=== PATIENT | female | born 1950 | race Caucasian/White ===

== ENCOUNTER 2016-09-12 18:13 | Inpatient (IN) | payer MEDICARE, MEDICAID ==
[~2016-09-12] VITALS: Ht 162.8 cm; Wt 84.4 kg
[2016-09-12] MEDS ORDERED: Bacitracin Oint UD TOPIC ONE (18:15)
[2016-09-12] MEDS ORDERED: Lidocaine 1% 10mg/ml/EPI 0.01mg/ml 50ml INJ ONE (18:15)
[2016-09-12] MEDS ORDERED: fentaNYL 100 mcg/2 mL IV ONE ×4 (18:15→23:45)
[2016-09-12 19:08] LABS: BASOPHILS % (AUTO) 0.8 % (0.0-2.0); EOSINOPHILS % (AUTO) 1.3 % (0.0-3.0); LYMPHOCYTES % (AUTO) 23.7 % (20.0-45.0); MEAN CORPUSCULAR HEMOGLOBIN 27.6 PG (27.0-31.0); MEAN CORPUSCULAR HGB CONC 32.5 G/DL (32.0-36.0); MEAN CORPUSCULAR VOLUME 85 FL (80-99); MEAN PLATELET VOLUME 6.1 FL (6.5-10.1); NEUTROPHILS % (AUTO) 67.3 % (45.0-75.0); PLATELET COUNT 340 K/UL (150-450); RED BLOOD COUNT 4.08 M/UL (4.20-5.40); WHITE BLOOD COUNT 6.3 K/UL (4.8-10.8)
[2016-09-12 19:25] LABS: TROPONIN I < 0.30 ng/mL (<=0.30)
[2016-09-12 19:28] LABS: ALANINE AMINOTRANSFERASE 17 U/L (3-33); ALBUMIN/GLOBULIN RATIO 1.5 (1.0-2.7); ANION GAP 21 (5-15); ASPARTATE AMINO TRANSFERASE 24 U/L (5-40); CALCIUM 9.1 mg/dL (8.6-10.2); CARBON DIOXIDE 24 mEQ/L (20-30); CHLORIDE 92 mEQ/L (98-107); CREATININE 1.2 mg/dL (0.5-0.9); HEMOLYSIS 5; POTASSIUM 3.8 mEQ/L (3.4-4.9); SODIUM 137 mEQ/L (135-145); TOTAL PROTEIN 7.2 g/dL (6.6-8.7)
[2016-09-12] MEDS ORDERED: Lidocaine 2% 20mg/ml/Epi 0.005mg/ml 20ml vial ONE (20:24)
--- NOTE | 2016-09-12 21:32 | Emergency Room Report ---
History of Present Illness General Chief Complaint: Syncope Source: Patient Present Illness HPI Patient had a fall. She is uncertain how this happened. She denies syncope, but can't explain fall. Hit her face, knees and L arm. Pain in her knees is 10 /10, aching, not radiating. Slight less R elbow, radiating to forearm and up towards shoulder. Constant. No neck pain. + cut R forehead. Some bleeding = minimal. Uncertain last tetanus. She has had collapse in the past. Walks with a cane. No chest pain, palpitations, SOB, NVD, dizziness, back pain, dysuria/hematuria, abdominal pain. H/O diabetes and hypertension. Colostomy. 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 Review of Systems All Other Systems: negative except mentioned in HPI Physical Exam Vital Signs Date Time Temp Pulse Resp B/P Pulse Ox O2 Delivery O2 Flow Rate FiO2 09/12/16 18:14 97.0 82 18 117/50 98 Room Air Sp02 EP Interpretation: reviewed, normal General Appearance: well appearing, no apparent distress, GCS 15 Head: other - laceration r muslim/forehead Eyes: bilateral eye EOMI, bilateral eye PERRL, bilateral eye normal inspection ENT: moist mucus membranes Neck: supple Respiratory: lungs clear, normal breath sounds Cardiovascular #1: regular rate, rhythm Cardiovascular #2: 2+ radial (R) Gastrointestinal: normal inspection, normal bowel sounds, non tender, no mass, non-distended, other - colostomy Musculoskeletal: back normal, gait/station normal, normal range of motion Neurologic: alert, oriented x3, health sanitarian III-XII nml as tested, motor strength/tone normal, DTRs symmetric, sensory intact, cerebellar normal, normal gait, speech normal Psychiatric: mood/affect normal Skin: normal inspection, warm/dry, other - 2.5 cm laceration R forehead Procedures Laceration/Wound Repair Laceration/Wound Repair : Wound Location: face Wound Length (cm): 3 Wound Explored: clean Betadine Prep?: Yes Anesthesia: Lidocaine w/ Epi Wound Debrided: minimal Wound Repaired With: sutures Suture Size/Type: 6:0, proline Layer Closure?: Yes Deep Layer Suture Size/Type: 6:0 Sterile Dressing Applied?: Yes Splint Applied?: No Sling Applied?: No Patient Tolerated: Well Complications: None Medical Decision Making Diagnostic Impression: Primary Impression: Syncope Qualified Codes: R55 - Syncope and collapse Additional Impressions: Facial laceration Qualified Codes: S01.81XA - Laceration without foreign body of other part of head, initial encounter Knee contusion Qualified Codes: S80.00XA - Contusion of unspecified knee, initial encounter Contusion of right elbow Qualified Codes: S50.01XA - Contusion of right elbow, initial encounter Diabetes Qualified Codes: E11.9 - Type 2 diabetes mellitus without complications ER Course Patient with fall with possible syncope. Ddx: AMI, arrhythmia, hypotension, vasovagal amongst others. Patient with head and extremity trauma, fxs need to be excluded as well as treatment with analgesia. Syncope needs to be evaluated with CT, labs, CXR and EKG. Patient improved with analgesia and hydration. sutured Aces applied by tech. Position good with improvement and neurovasc normal as checked by me. Admit telemetry, Dr. Dewey at request of Dr. Dutton. Laboratory Tests Test 09/12/16 18:42 09/13/16 00:10 White Blood Count 6.3 K/UL (4.8-10.8) Red Blood Count 4.08 M/UL (4.20-5.40) L Hemoglobin 11.2 G/DL (12.0-16.0) L Hematocrit 34.6 % (37.0-47.0) L Mean Corpuscular Volume 85 FL (80-99) Mean Corpuscular Hemoglobin 27.6 PG (27.0-31.0) Mean Corpuscular Hemoglobin Concent 32.5 G/DL (32.0-36.0) Red Cell Distribution Width 14.0 % (11.6-14.8) Platelet Count 340 K/UL (150-450) Mean Platelet Volume 6.1 FL (6.5-10.1) L Neutrophils (%) (Auto) 67.3 % (45.0-75.0) Lymphocytes (%) (Auto) 23.7 % (20.0-45.0) Monocytes (%) (Auto) 7.0 % (1.0-10.0) Eosinophils (%) (Auto) 1.3 % (0.0-3.0) Basophils (%) (Auto) 0.8 % (0.0-2.0) Prothrombin Time 10.0 SEC (9.30-11.50) Prothrombin Time INR 1.0 (0.9-1.1) PTT 25 SEC (23-33) Sodium Level 137 mEQ/L (135-145) Potassium Level 3.8 mEQ/L (3.4-4.9) Chloride Level 92 mEQ/L (98-107) L Carbon Dioxide Level 24 mEQ/L (20-30) Anion Gap 21 (5-15) H Blood Urea Nitrogen 20 mg/dL (7-23) Creatinine 1.2 mg/dL (0.5-0.9) H Estimate Glomerular Filtration Rate 45.0 mL/min (>60) Glucose Level 264 mg/dL (74-106) H Calcium Level 9.1 mg/dL (8.6-10.2) Total Bilirubin 0.4 mg/dL (0.0-1.2) Aspartate Amino Transferase (AST) 24 U/L (5-40) Alanine Aminotransferase (ALT) 17 U/L (3-33) Alkaline Phosphatase 108 U/L (35-104) H Total Creatine Kinase 99 U/L (26-140) Troponin I < 0.30 ng/mL (<=0.30) Pro-B-Type Natriuretic Peptide 93 pg/mL (0-125) Total Protein 7.2 g/dL (6.6-8.7) Albumin 4.4 g/dL (3.5-5.2) Globulin 2.8 g/dL Albumin/Globulin Ratio 1.5 (1.0-2.7) Urine Color Pale yellow Urine Appearance Clear Urine pH 5 (4.5-8.0) Urine Specific [place] 1.010 (1.005-1.035) Urine Protein Negative (NEGATIVE) Urine Glucose (UA) Negative (NEGATIVE) Urine Ketones Negative (NEGATIVE) Urine Occult Blood Negative (NEGATIVE) Urine Nitrite Negative (NEGATIVE) Urine Bilirubin Negative (NEGATIVE) Urine Urobilinogen Normal MG/DL (0.0-1.0) Urine Leukocyte Esterase 2+ (NEGATIVE) H Urine RBC 0-2 /HPF (0 - 2) Urine WBC 10-15 /HPF (0 - 2) H Urine Squamous Epithelial Cells Moderate /LPF (NONE/OCC) H Urine Bacteria Few /HPF (NONE) EKG Diagnostic Results Rate: normal Rhythm: NSR ST Segments: no acute changes Rhythm Strip Diag. Results EP Interpretation: yes Rhythm: NSR, no PVC's, no ectopy Chest X-Ray Diagnostic Results EP Interpretation: Yes Findings: no consolidation, no effusion, no pneumothorax, no acute cardiopulmonary disease Number of Views: 1 Other X-Ray Diagnostic Results Other X-Ray Diagnostic Results #1: X-Ray Ordered: L knee EP Interpretation: Yes Findings: no fractures, no dislocation, other - STS Number of Views: 3 Other X-Ray Diagnostic Results #2: X-Ray Ordered: R knee EP Interpretation: Yes Findings: no fractures, no dislocation, other Number of Views: 3 Other X-Ray Diagnostic Results #3: X-Ray Ordered: R elbow EP Interpretation: Yes Findings: no fractures, no dislocation, no soft tissue swelling Number of Views: 3 CT/MRI/US Diagnostic Results CT/MRI/US Diagnostic Results : Imaging Test Ordered: head Impression atrophy, no fx, nl soft tissues Last Vital Signs Date Time Temp Pulse Resp B/P Pulse Ox O2 Delivery O2 Flow Rate FiO2 09/12/16 18:14 97.0 82 18 117/50 98 Room Air Status: improved Disposition: ADMITTED INPATIENT Condition: Serious Referrals: Marianne Dutton MD (PCP) Joon Seaman M.D. Sep 12, 2016 21:32
[2016-09-12] MEDS ORDERED: Mylanta II UD 30ml ORAL PRN (22:00)
[2016-09-12] MEDS ORDERED: Nitroglycerin Subl 0.4mg tab (Bottle Of 25) SL PRN (22:00)
[2016-09-12] MEDS ORDERED: LORazepam Inj 2mg/ml 1ml IV PRN (22:00)
[2016-09-12] MEDS ORDERED: DuoNeb 0.5-3(2.5)mg/3ml neb HHN PRN (22:00)
[2016-09-12] MEDS ORDERED: Miralax 17gm pkt ORAL PRN (22:00)
[2016-09-12 22:24] VITALS: BP 100/56
[2016-09-13] VITALS (8 sets, daily range): BP systolic 106–123; BP diastolic 49–73
[2016-09-13 00:22] LABS: APPEARANCE,URINE CLEAR; KETONES,URINE NEGATIVE (NEGATIVE); LEUKOCYTE ESTERASE ,URINE 2+ (NEGATIVE); NITRITE,URINE NEGATIVE (NEGATIVE); PH,URINE 5 (4.5-8.0); PROTEIN,URINE NEGATIVE (NEGATIVE); UROBILINOGEN,URINE NORMAL MG/DL (0.0-1.0)
[2016-09-13 00:38] LABS: BACTERIA,URINE FEW /HPF; RBC,URINE 0-2 /HPF (0 - 2); SQUAMOUS EPITHELIAL CELL,UR MODERATE /LPF (NONE/OCC)
[2016-09-13] MEDS ORDERED: ASPIR 8181 MG ORAL (01:08)
[2016-09-13] MEDS ORDERED: METFORMIN HCL500 M1 ORAL (01:08)
[2016-09-13] MEDS: Morphine Sulfate 2mg/ml Inj IVP PRN ×4 (02:04→22:21)
[2016-09-13 05:10] LABS: BASOPHILS % (AUTO) 2.7 % (0.0-2.0); EOSINOPHILS % (AUTO) 1.1 % (0.0-3.0); LYMPHOCYTES % (AUTO) 15.7 % (20.0-45.0); MEAN CORPUSCULAR HEMOGLOBIN 26.9 PG (27.0-31.0); MEAN CORPUSCULAR HGB CONC 32.2 G/DL (32.0-36.0); MEAN CORPUSCULAR VOLUME 83 FL (80-99); MEAN PLATELET VOLUME 6.6 FL (6.5-10.1); MONOCYTES % (AUTO) 8.6 % (1.0-10.0); PLATELET COUNT 359 K/UL (150-450); RED BLOOD COUNT 4.41 M/UL (4.20-5.40); WHITE BLOOD COUNT 6.3 K/UL (4.8-10.8)
[2016-09-13 05:21] LABS: PROTHROMBIN TIME 10.5 SEC (9.30-11.50)
[2016-09-13 05:29] LABS: ALBUMIN/GLOBULIN RATIO 1.6 (1.0-2.7); CALCIUM 8.9 mg/dL (8.6-10.2); CREATININE 1.2 mg/dL (0.5-0.9); POTASSIUM 3.4 mEQ/L (3.4-4.9); TOTAL PROTEIN 6.8 g/dL (6.6-8.7)
[2016-09-13] MEDS: NovoLOG Insulin Flexpen SUBQ SCH ×4 (07:49→21:10)
[2016-09-13 08:50] LABS: CHOLESTEROL/HDL RATIO 2.9 (3.3-4.4)
[2016-09-13 08:53] LABS: THYROID STIMULATING HORMONE 1.76 uIU/mL (0.300-4.500)
--- NOTE | 2016-09-13 09:05 | Diagnostic Imaging Report ---
Indications: Head trauma, status post fall Technique: Spiral acquisitions obtained through the brain. Angled axial and coronal 5 x 5 mm slices were reconstructed. Total dose length product 1312 mGycm. CTDI vol(s) 70 mGy Comparison: None Findings: There is a sizable area of encephalomalacia involving the anteromedial right frontal lobe. There is mild age-related enlargement of ventricles and extra axial CSF spaces and fairly extensive periventricular deep white matter chronic ischemic change. No acute hemorrhage or edema. No mass effect or midline shift. No significant extra cranial scalp soft tissue swelling is noted. The calvarium is intact. Included sinuses are clear. The orbits are unremarkable. Impression: Old right frontal infarct Mild age-related changes Negative for acute intracranial bleed or mass effect This agrees with the preliminary interpretation provided overnight by Dr. Sullivan The CT scanner at [facility] is accredited by the [employer] and the scans are performed using protocols designed to limit radiation exposure to as low as reasonably achievable to attain images of sufficient resolution adequate for diagnostic evaluation.
[2016-09-13] MEDS ORDERED: Morphine Sulfate 2mg/ml Inj ONE (09:25)
[2016-09-13] MEDS ORDERED: Heparin 5000 units/ml inj ONE (09:25)
[2016-09-13] MEDS: Heparin 5000 units/ml inj SUBQ SCH ×2 (09:37→21:09)
--- NOTE | 2016-09-13 10:44 | Diagnostic Imaging Report ---
Indication: TRAUMA Technique: 3 views of the left knee Comparison: None Findings:No acute fractures. No dislocations. Joint spaces are preserved. No suprapatellar effusion. There are vascular calcifications Impression:No acute process
--- NOTE | 2016-09-13 10:45 | Diagnostic Imaging Report ---
Indication: TRAUMA Technique: 3 views of the right knee Comparison: None Findings:Joint spaces are preserved. No acute fractures. No dislocations. No suprapatellar effusion. There are vascular calcifications. Impression:No acute process
--- NOTE | 2016-09-13 11:44 | Diagnostic Imaging Report ---
Indication: Chest pain Technique: One view of the chest Comparison: none Findings: Lungs and pleural spaces are clear. Heart size is normal. Impression: No acute process This agrees with the preliminary interpretation provided by the emergency room physician
--- NOTE | 2016-09-13 12:04 | Neurology Progress Note ---
Objective Physical Exam Last Vital Signs Date Time Temp Pulse Resp B/P Pulse Ox O2 Delivery O2 Flow Rate FiO2 09/13/16 10:00 98.5 62 16 106/50 97 Room Air Laboratory Tests Test 09/12/16 18:42 09/13/16 00:10 09/13/16 05:00 White Blood Count 6.3 K/UL (4.8-10.8) 6.3 K/UL (4.8-10.8) Red Blood Count 4.08 M/UL (4.20-5.40) L 4.41 M/UL (4.20-5.40) Hemoglobin 11.2 G/DL (12.0-16.0) L 11.9 G/DL (12.0-16.0) L Hematocrit 34.6 % (37.0-47.0) L 36.8 % (37.0-47.0) L Mean Corpuscular Volume 85 FL (80-99) 83 FL (80-99) Mean Corpuscular Hemoglobin 27.6 PG (27.0-31.0) 26.9 PG (27.0-31.0) L Mean Corpuscular Hemoglobin Concent 32.5 G/DL (32.0-36.0) 32.2 G/DL (32.0-36.0) Red Cell Distribution Width 14.0 % (11.6-14.8) 14.0 % (11.6-14.8) Platelet Count 340 K/UL (150-450) 359 K/UL (150-450) Mean Platelet Volume 6.1 FL (6.5-10.1) L 6.6 FL (6.5-10.1) Neutrophils (%) (Auto) 67.3 % (45.0-75.0) 72.0 % (45.0-75.0) Lymphocytes (%) (Auto) 23.7 % (20.0-45.0) 15.7 % (20.0-45.0) L Monocytes (%) (Auto) 7.0 % (1.0-10.0) 8.6 % (1.0-10.0) Eosinophils (%) (Auto) 1.3 % (0.0-3.0) 1.1 % (0.0-3.0) Basophils (%) (Auto) 0.8 % (0.0-2.0) 2.7 % (0.0-2.0) H Prothrombin Time 10.0 SEC (9.30-11.50) 10.5 SEC (9.30-11.50) Prothromb Time International Ratio 1.0 (0.9-1.1) 1.0 (0.9-1.1) Activated Partial Thromboplast Time 25 SEC (23-33) 23 SEC (23-33) Sodium Level 137 mEQ/L (135-145) 138 mEQ/L (135-145) Potassium Level 3.8 mEQ/L (3.4-4.9) 3.4 mEQ/L (3.4-4.9) Chloride Level 92 mEQ/L (98-107) L 92 mEQ/L (98-107) L Carbon Dioxide Level 24 mEQ/L (20-30) 26 mEQ/L (20-30) Anion Gap 21 (5-15) H 20 (5-15) H Blood Urea Nitrogen 20 mg/dL (7-23) 21 mg/dL (7-23) Creatinine 1.2 mg/dL (0.5-0.9) H 1.2 mg/dL (0.5-0.9) H Estimat Glomerular Filtration Rate 45.0 mL/min (>60) 45.0 mL/min (>60) Glucose Level 264 mg/dL (74-106) H 295 mg/dL (74-106) H Calcium Level 9.1 mg/dL (8.6-10.2) 8.9 mg/dL (8.6-10.2) Total Bilirubin 0.4 mg/dL (0.0-1.2) 0.6 mg/dL (0.0-1.2) Aspartate Amino Transf (AST/SGOT) 24 U/L (5-40) 20 U/L (5-40) Alanine Aminotransferase (ALT/SGPT) 17 U/L (3-33) 16 U/L (3-33) Alkaline Phosphatase 108 U/L (35-104) H 101 U/L (35-104) Total Creatine Kinase 99 U/L (26-140) Troponin I < 0.30 ng/mL (<=0.30) Pro-B-Type Natriuretic Peptide 93 pg/mL (0-125) Total Protein 7.2 g/dL (6.6-8.7) 6.8 g/dL (6.6-8.7) Albumin 4.4 g/dL (3.5-5.2) 4.2 g/dL (3.5-5.2) Globulin 2.8 g/dL 2.6 g/dL Albumin/Globulin Ratio 1.5 (1.0-2.7) 1.6 (1.0-2.7) Urine Color Pale yellow Urine Appearance Clear Urine pH 5 (4.5-8.0) Urine Specific [place] 1.010 (1.005-1.035) Urine Protein Negative (NEGATIVE) Urine Glucose (UA) Negative (NEGATIVE) Urine Ketones Negative (NEGATIVE) Urine Occult Blood Negative (NEGATIVE) Urine Nitrite Negative (NEGATIVE) Urine Bilirubin Negative (NEGATIVE) Urine Urobilinogen Normal MG/DL (0.0-1.0) Urine Leukocyte Esterase 2+ (NEGATIVE) H Urine RBC 0-2 /HPF (0 - 2) Urine WBC 10-15 /HPF (0 - 2) H Urine Squamous Epithelial Cells Moderate /LPF (NONE/OCC) H Urine Bacteria Few /HPF (NONE) Triglycerides Level 117 mg/dL (< 150) Cholesterol Level 192 mg/dL (< 200) LDL Cholesterol 102 mg/dL (60-99) H HDL Cholesterol 67 mg/dL (> 60) H Cholesterol/HDL Ratio 2.9 (3.3-4.4) L Thyroid Stimulating Hormone (TSH) 1.760 uIU/mL (0.300-4.500) Impression/Recommendations Problems: (1) blunt head trauma, mild concussion (2) abnormal gait (3) extensive ischemic cerebrovascular disease, old R frontal stroke. (4) Diabetic polyneuropathy (5) s/p Left THR (6) Syncope Status: unchanged Recommendations #[id number] ROBERT BAEZ Sep 13, 2016 12:04
--- NOTE | 2016-09-13 12:06 | Diagnostic Imaging Report ---
Indications:TRAUMA Technique: Three or 4 views of the right elbow Comparison: None Findings:No acute fractures. No dislocations. Joint spaces are preserved. No effusion Impression:Negative
--- NOTE | 2016-09-13 13:49 | History and Physical ---
History of Present Illness General Date patient seen: Sep 13, 2016 Reason for Hospitalization: Syncope Present Illness HPI 66 year old male with hx of DM, CAD, colostomy, multiple stents, was walking her dog yesterday morning, while standing she devendra that her knees are giving up on her and she fell. She never lost consciousness. She taken to [facility] and because of her extensive cardiac history she is admitted to telemetry for further work up. Allergies: Coded Allergies: GLIPIZIDE (Verified Allergy, Mild, GENERIC GETS RASH, 01/21/09) Uncoded Allergies: NITROGLYCERINE PASTE (Allergy, Unknown, 09/12/16) Medication History Scheduled Aspirin* (Aspir 81*), 81 MG ORAL DAILY, (Reported) Metformin Hcl* (Metformin Hcl*), 500 MG ORAL TWICE A DAY, (Reported) Patient History Healthcare decision maker Resuscitation status Full Code Advanced Directive on File Past Medical/Surgical History Past Medical/Surgical History: (1) CAD (coronary artery disease) (2) Stented coronary artery (3) extensive ischemic cerebrovascular disease, old R frontal stroke. 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 Last 24 Hour Vital Signs Date Time Temp Pulse Resp B/P Pulse Ox O2 Delivery O2 Flow Rate FiO2 09/13/16 10:00 98.5 62 16 106/50 97 Room Air 09/13/16 08:30 62 16 106/50 97 Room Air 09/13/16 06:00 98.5 67 16 111/60 93 Room Air 09/13/16 03:47 98.5 69 13 107/55 93 Room Air 09/13/16 02:35 98.5 09/13/16 02:17 98.5 65 17 118/73 97 Room Air 09/13/16 00:31 98.5 09/13/16 00:15 98.5 65 16 107/49 97 Room Air 09/12/16 22:24 97.1 68 13 100/56 95 Room Air 09/12/16 19:26 97.1 09/12/16 19:26 97.1 09/12/16 19:26 97.1 09/12/16 18:14 97.0 82 18 117/50 98 Room Air Laboratory Tests Test 09/12/16 18:42 09/13/16 00:10 09/13/16 05:00 White Blood Count 6.3 K/UL (4.8-10.8) 6.3 K/UL (4.8-10.8) Red Blood Count 4.08 M/UL (4.20-5.40) L 4.41 M/UL (4.20-5.40) Hemoglobin 11.2 G/DL (12.0-16.0) L 11.9 G/DL (12.0-16.0) L Hematocrit 34.6 % (37.0-47.0) L 36.8 % (37.0-47.0) L Mean Corpuscular Volume 85 FL (80-99) 83 FL (80-99) Mean Corpuscular Hemoglobin 27.6 PG (27.0-31.0) 26.9 PG (27.0-31.0) L Mean Corpuscular Hemoglobin Concent 32.5 G/DL (32.0-36.0) 32.2 G/DL (32.0-36.0) Red Cell Distribution Width 14.0 % (11.6-14.8) 14.0 % (11.6-14.8) Platelet Count 340 K/UL (150-450) 359 K/UL (150-450) Mean Platelet Volume 6.1 FL (6.5-10.1) L 6.6 FL (6.5-10.1) Neutrophils (%) (Auto) 67.3 % (45.0-75.0) 72.0 % (45.0-75.0) Lymphocytes (%) (Auto) 23.7 % (20.0-45.0) 15.7 % (20.0-45.0) L Monocytes (%) (Auto) 7.0 % (1.0-10.0) 8.6 % (1.0-10.0) Eosinophils (%) (Auto) 1.3 % (0.0-3.0) 1.1 % (0.0-3.0) Basophils (%) (Auto) 0.8 % (0.0-2.0) 2.7 % (0.0-2.0) H Prothrombin Time 10.0 SEC (9.30-11.50) 10.5 SEC (9.30-11.50) Prothromb Time International Ratio 1.0 (0.9-1.1) 1.0 (0.9-1.1) Activated Partial Thromboplast Time 25 SEC (23-33) 23 SEC (23-33) Sodium Level 137 mEQ/L (135-145) 138 mEQ/L (135-145) Potassium Level 3.8 mEQ/L (3.4-4.9) 3.4 mEQ/L (3.4-4.9) Chloride Level 92 mEQ/L (98-107) L 92 mEQ/L (98-107) L Carbon Dioxide Level 24 mEQ/L (20-30) 26 mEQ/L (20-30) Anion Gap 21 (5-15) H 20 (5-15) H Blood Urea Nitrogen 20 mg/dL (7-23) 21 mg/dL (7-23) Creatinine 1.2 mg/dL (0.5-0.9) H 1.2 mg/dL (0.5-0.9) H Estimat Glomerular Filtration Rate 45.0 mL/min (>60) 45.0 mL/min (>60) Glucose Level 264 mg/dL (74-106) H 295 mg/dL (74-106) H Calcium Level 9.1 mg/dL (8.6-10.2) 8.9 mg/dL (8.6-10.2) Total Bilirubin 0.4 mg/dL (0.0-1.2) 0.6 mg/dL (0.0-1.2) Aspartate Amino Transf (AST/SGOT) 24 U/L (5-40) 20 U/L (5-40) Alanine Aminotransferase (ALT/SGPT) 17 U/L (3-33) 16 U/L (3-33) Alkaline Phosphatase 108 U/L (35-104) H 101 U/L (35-104) Total Creatine Kinase 99 U/L (26-140) Troponin I < 0.30 ng/mL (<=0.30) Pro-B-Type Natriuretic Peptide 93 pg/mL (0-125) Total Protein 7.2 g/dL (6.6-8.7) 6.8 g/dL (6.6-8.7) Albumin 4.4 g/dL (3.5-5.2) 4.2 g/dL (3.5-5.2) Globulin 2.8 g/dL 2.6 g/dL Albumin/Globulin Ratio 1.5 (1.0-2.7) 1.6 (1.0-2.7) Urine Color Pale yellow Urine Appearance Clear Urine pH 5 (4.5-8.0) Urine Specific [place] 1.010 (1.005-1.035) Urine Protein Negative (NEGATIVE) Urine Glucose (UA) Negative (NEGATIVE) Urine Ketones Negative (NEGATIVE) Urine Occult Blood Negative (NEGATIVE) Urine Nitrite Negative (NEGATIVE) Urine Bilirubin Negative (NEGATIVE) Urine Urobilinogen Normal MG/DL (0.0-1.0) Urine Leukocyte Esterase 2+ (NEGATIVE) H Urine RBC 0-2 /HPF (0 - 2) Urine WBC 10-15 /HPF (0 - 2) H Urine Squamous Epithelial Cells Moderate /LPF (NONE/OCC) H Urine Bacteria Few /HPF (NONE) Triglycerides Level 117 mg/dL (< 150) Cholesterol Level 192 mg/dL (< 200) LDL Cholesterol 102 mg/dL (60-99) H HDL Cholesterol 67 mg/dL (> 60) H Cholesterol/HDL Ratio 2.9 (3.3-4.4) L Thyroid Stimulating Hormone (TSH) 1.760 uIU/mL (0.300-4.500) Height (Feet): 5 Height (Inches): 4.10 Weight (Pounds): 186 Medications Current Medications Medications (Trade) Dose Ordered Sig/Bart Route PRN Reason Start Time Stop Time Status Last Admin Dose Admin Acetaminophen (Tylenol) 650 mg Q4H PRN ORAL fever 09/12/16 22:00 10/12/16 21:59 Al Hydroxide/Mg Hydroxide (Mylanta II) 30 ml Q6H PRN ORAL dyspepsia 09/12/16 22:00 10/12/16 21:59 09/13/16 11:21 Albuterol/ Ipratropium (DuoNeb 0.5-3(2.5)mg/3ml) 3 ml EVERY 4 HOURS PRN HHN Shortness of Breath 09/12/16 22:00 09/17/16 21:59 Clonidine HCl (Catapres) 0.1 mg Q4H PRN ORAL For High Blood Pressure 09/12/16 22:00 10/12/16 21:59 Dextrose (Dextrose 50%) STAT PRN IV Hypoglycemia 09/12/16 22:00 10/12/16 21:59 Heparin Sodium (Porcine) (Heparin 5000 units/ml) 5,000 units EVERY 12 HOURS SUBQ 09/13/16 09:00 10/13/16 08:59 09/13/16 09:37 Insulin Aspart (NovoLOG) BEFORE MEALS AND HS SUBQ 09/13/16 06:30 10/13/16 06:29 09/13/16 11:23 Lorazepam (Ativan 2mg/ml 1ml) 0.5 mg Q4H PRN IV For Anxiety 09/12/16 22:00 09/19/16 21:59 Morphine Sulfate (Morphine Sulfate) 1 mg EVERY 4 HOURS PRN IVP For Pain 7-10 09/12/16 22:00 09/19/16 21:59 09/13/16 09:35 Nitroglycerin (Ntg) 0.4 mg Q5M X 3 DOSES PRN SL Prn Chest Pain 09/12/16 22:00 10/12/16 21:59 Ondansetron HCl (Zofran) 4 mg Q6H PRN IVP Nausea & Vomiting 09/12/16 22:00 10/12/16 21:59 09/13/16 09:35 Polyethylene Glycol (Miralax) 17 gm HSPRN PRN ORAL Constipation 09/12/16 22:00 10/12/16 21:59 Temazepam (Restoril) 15 mg HSPRN PRN ORAL Insomnia 09/12/16 22:00 09/19/16 21:59 Assessment/Plan Problem List: (1) Acute encephalopathy ICD Codes: G93.40 - Encephalopathy, unspecified SNOMED: 8290764 (2) CAD (coronary artery disease) ICD Codes: I25.10 - Atherosclerotic heart disease of [place] coronary artery without angina pectoris SNOMED: 68322403 (3) Stented coronary artery ICD Codes: Z95.5 - Presence of coronary angioplasty implant and graft SNOMED: 73844631, 932543158 (4) Diabetic polyneuropathy ICD Codes: E11.42 - Type 2 diabetes mellitus with diabetic polyneuropathy SNOMED: 23191671 (5) Syncope ICD Codes: R55 - Syncope and collapse SNOMED: 178088278 (6) Diabetes ICD Codes: E11.9 - Type 2 diabetes mellitus without complications SNOMED: 51874582 Assessment/Plan telemetry monitoring cardiac evaluation rule out arrhythmias neuro evaluation colostomy care COLTON NICOLE Sep 13, 2016 13:49
--- NOTE | 2016-09-13 19:58 | Consultation ---
DATE OF CONSULTATION: 09/13/2016 NEUROLOGICAL CONSULTATION REQUESTING PHYSICIAN: Chet Dewey M.D. PRIMARY CARE PHYSICIAN: Marianne Dutton M.D. HISTORY OF PRESENT ILLNESS: The patient is a 66-year-old female, seen in neurological consultation to evaluate episode of sudden fall. According the patient on the day of admission she was doing fairly well and was walking with her small chihuahua dog while talking to other person. While in conversation, the patient suddenly fell down. She denies strongly that she lost consciousness. She only remembered that her both legs buckled up and she fell. She hit hard her head against the ground, injuring her knees, right forearm, right shoulder. Paramedics were called to the scene. Her vital signs in the field included blood pressure of 107/55, heart rate of 63, respiration 18. The patient informed that she was walking and then next she remembered she was on the ground. She had one inch laceration above the right eye and complained of headache as well as pain in her knees and elbows. The patient was brought to emergency room where the patient indicated she is uncertain what happened although she denies being syncope. She was unable to explain the fall. Her vital signs remained stable. She had small facial laceration which was sutured ,contusion to the knee, contusion to the right elbow and right shoulder. Laboratory work was obtained with hemoglobin 11.2, hematocrit 34.6. Normal coagulation panel. Urinalysis with 10 to 15 WBCs. Chemistry panel, normal TSH, lipid panel, anion gap of 21, creatinine 1.2. Imaging studies included x-ray of the knee with no fractures noted. CT of the brain revealed old right frontal infarct, mild age-related changes but no evidence of acute intracranial abnormality. There was extensive periventricular deep white matter chronic ischemic changes. Since admission till present, the patient's condition remained unchanged although the patient now complaining of having headache, intermittent nausea, dizziness, right shoulder pain, aches in her both knees. The patient recalled that the last year or two, she had several falls. She developed fear of falling using cane for ambulation, went with the dog, she feels somewhat unsteady. Two months ago, she had an episode while standing and talking to her family she suddenly collapsed and fell down. She has no full recall of events. She had a head trauma with facial laceration, taken to [facility] where CAT scan of the brain was obtained, reported to as negative. PAST MEDICAL HISTORY: The patient has history of diabetes type 2, hypertension, hyperlipidemia, coronary artery disease, previous myocardial infarction, degenerative joint disease, status post left hip replacement. MEDICATIONS: The patient's treatment include aspirin, glipizide, lisinopril, metformin. ALLERGIES: Nitropaste. FAMILY HISTORY: Noncontributory. SOCIAL HISTORY: The patient lives at home with her sister. No alcohol. No drug abuse. She admitted drinking sufficient amount of fluids but not sufficient amount of ambulation. She takes dog out but walks slowly. She is using cane for ambulation. She continued to have fear of fall. REVIEW OF SYSTEMS: A 12-point review of system was obtained this included posttraumatic cephalgia, nausea, dizziness, right shoulder pain, right forearm laceration, both knee pain. No chest pain. No palpitations. No respiratory problems. Denies abdominal pain or discomfort. No urine or bowel incontinence. PHYSICAL EXAMINATION: GENERAL: A well-developed and well-nourished, pleasant lady, not in acute distress. VITAL SIGNS: Blood pressure 105/80, respirations 14. HEENT: Head is normocephalic. There is a slight suture in the right side of the face. EXTREMITIES: There are bruises on her right shoulder and right forearm. Palpable tenderness in the right shoulder. Tenderness on palpation both knees. Peripheral pulses 1+ symmetric. MENTAL STATUS: She is fully alert and oriented x3. Speech is fluent. Language intact. There is no aphasia. No apraxia. Cognitive function normal. CRANIAL NERVE II: Pupils both responding to light and accommodation. Extraocular movement intact. No nystagmus. CRANIAL NERVE V: Normal corneal responses. CRANIAL NERVE VII: No facial asymmetry. CRANIAL NERVE VIII: Normal hearing. CRANIAL NERVES IX THROUGH XII: Tongue is midline. Symmetric palate elevation. MOTOR EXAMINATION: Normal muscle tone. Strength 5/5 both upper extremities, slightly reduced strength in the right hip flexors but predominantly left hip flexor which is antalgic due to discomfort in her left hip region. Deep tendon reflexes 1+ bilaterally symmetric. Absent both ankle jerks. Plantar responses flexor. SENSORY EXAMINATION: Normal to pinprick and light touch. Slight reduction proprioception both feet. IMPRESSION: 1. The patient is a 66-year-old female with abnormal gait and recurrent falls, rule out syncopal episode, rule out trip and fall accident. 2. 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 3. Diabetes type 2, diabetic polyneuropathy. 4. Hypertension. 5. Hyperlipidemia. 6. Coronary artery disease. 7. Status post left total hip replacement, antalgic left hip weakness. DISCUSSION: The patient developed somewhat on unstable gait in the last couple of years, had several falls including at least two episodes with collapse of both lower extremities and fall, current this current event appears to be without loss of consciousness. The patient had significant head trauma and probably mild cerebral concussion presenting now with headache, nausea, and dizziness. Cause of fall probably multifactorial, this may include being decondition, left hip flexor weakness, mild diabetic peripheral neuropathy, although patient unable to recall loss of consciousness, mild transient episode of unresponsiveness should be considered. The patient's full cardiac workup is pending to assess for possible cardiac arrhythmia. Recheck orthostatic blood pressure. Get a physical therapy, occupational therapy, the patient encouraged to start on conditioning exercises using extensively cane or walker for ambulation. Thank you for allowing me to see this interesting patient in neurological consultation. Servando Hearn M.D. DR: Gee JOB#: [id number] CC:
--- NOTE | 2016-09-13 20:06 | Cardiology Progress Note ---
Assessment/Plan Assessment/Plan syncoep orthosttic hypotension dm htn hyerplipidemai hs f abd wall truama uti? hold dc ivf hol antihypertensive med s 'await uti is on cipro at home for gi infection [id number] Objective Last 24 Hour Vital Signs Date Time Temp Pulse Resp B/P Pulse Ox O2 Delivery O2 Flow Rate FiO2 09/13/16 16:03 96.8 09/13/16 16:00 71 09/13/16 16:00 96.8 73 18 123/62 96 Room Air 09/13/16 12:00 96.7 92 17 109/70 Room Air 72 09/13/16 10:00 98.5 62 16 106/50 97 Room Air 09/13/16 08:30 62 16 106/50 97 Room Air 09/13/16 06:00 98.5 67 16 111/60 93 Room Air 09/13/16 03:47 98.5 69 13 107/55 93 Room Air 09/13/16 02:17 98.5 65 17 118/73 97 Room Air 09/13/16 00:31 98.5 09/13/16 00:15 98.5 65 16 107/49 97 Room Air 09/12/16 22:24 97.1 68 13 100/56 95 Room Air Laboratory Tests Test 09/13/16 00:10 09/13/16 05:00 Urine Color Pale yellow Urine Appearance Clear Urine pH 5 (4.5-8.0) Urine Specific [place] 1.010 (1.005-1.035) Urine Protein Negative (NEGATIVE) Urine Glucose (UA) Negative (NEGATIVE) Urine Ketones Negative (NEGATIVE) Urine Occult Blood Negative (NEGATIVE) Urine Nitrite Negative (NEGATIVE) Urine Bilirubin Negative (NEGATIVE) Urine Urobilinogen Normal MG/DL (0.0-1.0) Urine Leukocyte Esterase 2+ (NEGATIVE) H Urine RBC 0-2 /HPF (0 - 2) Urine WBC 10-15 /HPF (0 - 2) H Urine Squamous Epithelial Cells Moderate /LPF (NONE/OCC) H Urine Bacteria Few /HPF (NONE) White Blood Count 6.3 K/UL (4.8-10.8) Red Blood Count 4.41 M/UL (4.20-5.40) Hemoglobin 11.9 G/DL (12.0-16.0) L Hematocrit 36.8 % (37.0-47.0) L Mean Corpuscular Volume 83 FL (80-99) Mean Corpuscular Hemoglobin 26.9 PG (27.0-31.0) L Mean Corpuscular Hemoglobin Concent 32.2 G/DL (32.0-36.0) Red Cell Distribution Width 14.0 % (11.6-14.8) Platelet Count 359 K/UL (150-450) Mean Platelet Volume 6.6 FL (6.5-10.1) Neutrophils (%) (Auto) 72.0 % (45.0-75.0) Lymphocytes (%) (Auto) 15.7 % (20.0-45.0) L Monocytes (%) (Auto) 8.6 % (1.0-10.0) Eosinophils (%) (Auto) 1.1 % (0.0-3.0) Basophils (%) (Auto) 2.7 % (0.0-2.0) H Prothrombin Time 10.5 SEC (9.30-11.50) Prothromb Time International Ratio 1.0 (0.9-1.1) Activated Partial Thromboplast Time 23 SEC (23-33) Sodium Level 138 mEQ/L (135-145) Potassium Level 3.4 mEQ/L (3.4-4.9) Chloride Level 92 mEQ/L (98-107) L Carbon Dioxide Level 26 mEQ/L (20-30) Anion Gap 20 (5-15) H Blood Urea Nitrogen 21 mg/dL (7-23) Creatinine 1.2 mg/dL (0.5-0.9) H Estimat Glomerular Filtration Rate 45.0 mL/min (>60) Glucose Level 295 mg/dL (74-106) H Calcium Level 8.9 mg/dL (8.6-10.2) Total Bilirubin 0.6 mg/dL (0.0-1.2) Aspartate Amino Transf (AST/SGOT) 20 U/L (5-40) Alanine Aminotransferase (ALT/SGPT) 16 U/L (3-33) Alkaline Phosphatase 101 U/L (35-104) Total Protein 6.8 g/dL (6.6-8.7) Albumin 4.2 g/dL (3.5-5.2) Globulin 2.6 g/dL Albumin/Globulin Ratio 1.6 (1.0-2.7) Triglycerides Level 117 mg/dL (< 150) Cholesterol Level 192 mg/dL (< 200) LDL Cholesterol 102 mg/dL (60-99) H HDL Cholesterol 67 mg/dL (> 60) H Cholesterol/HDL Ratio 2.9 (3.3-4.4) L Thyroid Stimulating Hormone (TSH) 1.760 uIU/mL (0.300-4.500) LOAN LESLIE Sep 13, 2016 20:06
[2016-09-14 00:22] VITALS: BP 105/66
--- NOTE | 2016-09-14 03:08 | Consultation ---
DATE OF CONSULTATION: 09/13/2016 CARDIOLOGY CONSULTATION CONSULTING PHYSICIAN: Tom Mullen M.D. REFERRING PHYSICIAN: Chet Dewey M.D. REASON FOR REFERRAL: Syncope. HISTORY OF PRESENT ILLNESS: This is a 66-year-old female, who has been brought to the emergency room basically because of possibly passing out or near passing out. She tells me that she was standing and talking to another person with her dogs and all of a sudden her knees buckled and she fell to the floor. She remembers the fall. She states she did not lose consciousness somebody helped her up. She got up. Denies having had any dizziness . Denies any chest pain or pressure. No palpitations or any discomfort in the chest. There is no orthopnea. There is no PND. Usually she does not usually get dizzy when she stands up. The store host run sheet indicates she told them that she was walking and next thing she knew, she was on the ground. There was a 1 inch laceration above the right eye. She complains of headaches along with both knees and with no signs of any trauma besides her head, but denies any back pain. She was placed in full C-spine precaution and then was transferred to [facility] where she has been admitted to the hospital. She has been wanting to go home and I have been asked by Dr. Dewey to see her. PAST MEDICAL HISTORY: Positive for diabetes, high blood pressure, and high cholesterol. She has had history of heart attack in and percutaneous coronary intervention of some kind a number of years ago by . She also has a trauma to her abdominal wall when she fell in the shower and injured her abdomen and subsequently had a colostomy and a bag. Nevertheless, she denies any other medical problems. No cancer, stroke, hepatitis, tuberculosis, asthma, or emphysema. No ulcers, kidney problems, liver problems, thyroid problems, anemia, or arthritis. ALLERGIES: She states she is allergic to nitroglycerin paste. The chart indicates she is allergic to nitroglycerin paste as well as glipizide. SOCIAL HISTORY: She never smoked and never drank. She lives with her sister, who is her primary hospice home care coordinator. REVIEW OF SYSTEMS: Gastrointestinal: She denies. Genitourinary: She denies. Pulmonary: She denies. Constitutional: She denies. Neurologic: She denies. Cardiac: As mentioned in HPI. PHYSICAL EXAMINATION: GENERAL: Shows to be an elderly female, in no apparent respiratory distress. HEENT: Unremarkable. She has a laceration and sutures in the right upper temporal area approximately 1 inch. LUNGS: Appear to be clear to auscultation and percussion. CARDIAC: S1 is normal. S2 is normal. Regular rate and rhythm. No heaves, thrills, gallops, or rubs are noted. ABDOMEN: Soft and nontender. Positive bowel sounds. Colostomy is present. EXTREMITIES: There is no clubbing, cyanosis, nor edema. NEUROLOGIC: She is awake, alert, responsive, in no apparent respiratory distress. LABORATORY DATA: White count of 6.3, hemoglobin 11.9, and platelet count of 359,000. Sodium is 138, potassium 3.4, chloride 92, bicarbonate 26, BUN 21, creatinine 1.2, and a glucose of 295. Liver function tests are all normal. LDL of 102, HDL of 67. TSH 1.76. Her INR is 1.0 and a PTT of 23. Urinalysis is fairly unremarkable except for the fact she has 10 to 15 WBCs in the urine. ASSESSMENT: 1. Syncope. 2. Coronary artery disease history. 3. Diabetes mellitus. 4. Orthostatic hypotension. 5. History of abdominal trauma. PLAN: Dr. Dewey, this patient was seen in cardiac consultation. The patient had just had orthostatic vitals performed. On my arrival, patient's standing blood pressure was 74/44. I have instructed the patient that I would not recommend that she leave the hospital. She needs to continue intravenous fluids in the hospital, that she should have a urine sent for urine culture and sensitivity. EKG that was performed showed normal sinus rhythm. Septal Q-waves being noted by echocardiogram, preliminary shows a normal ejection fraction. Mild diastolic relaxation abnormality being noted. Her blood pressure medications at home unfortunately. She knows that she is taking aspirin, but the rest of her medications she is not aware of. She should be continued on her metformin and she will be re-evaluated for orthostatic vitals tomorrow morning. Depending on those results, she may be able to go home at that time. Additional information just became available. Her sister told me that she is taking amlodipine 10 mg a day in addition to Lipitor 80 mg, aspirin 81 mg, and some Cipro. I have instructed her to stay in the hospital so that orthostatic vitals resolve and she seemed to agree. I just discussed with the patient's sister over the phone extensively. Tom Mullen M.D. DR: ANKUR JOB#: [id number] CC:
[2016-09-14] MEDS: Morphine Sulfate 2mg/ml Inj IVP PRN (03:53)
[2016-09-14 04:10] VITALS: BP 134/54
[2016-09-14] MEDS: NovoLOG Insulin Flexpen SUBQ SCH ×3 (06:41→17:27)
[2016-09-14 07:18] LABS: CALCIUM 9.2 mg/dL (8.6-10.2); CREATININE 1.2 mg/dL (0.5-0.9)
[2016-09-14 07:21] LABS: BASOPHILS % (AUTO) 1.2 % (0.0-2.0); EOSINOPHILS % (AUTO) 2.2 % (0.0-3.0); LYMPHOCYTES % (AUTO) 26.5 % (20.0-45.0); MEAN CORPUSCULAR HEMOGLOBIN 27.2 PG (27.0-31.0); MEAN CORPUSCULAR HGB CONC 32.7 G/DL (32.0-36.0); MEAN CORPUSCULAR VOLUME 83 FL (80-99); MEAN PLATELET VOLUME 6.7 FL (6.5-10.1); MONOCYTES % (AUTO) 7.6 % (1.0-10.0); NEUTROPHILS % (AUTO) 62.5 % (45.0-75.0); PLATELET COUNT 357 K/UL (150-450); RED BLOOD COUNT 4.28 M/UL (4.20-5.40); RED CELL DISTRIBUTION WIDTH 13.6 % (11.6-14.8); WHITE BLOOD COUNT 5.3 K/UL (4.8-10.8)
[2016-09-14 07:42] LABS: POTASSIUM 2.7 mEQ/L (3.4-4.9)
[2016-09-14] MEDS ORDERED: Morphine Sulfate 2mg/ml Inj IVP PRN (07:45)
[2016-09-14 08:23] VITALS: BP 142/59
[2016-09-14] MEDS: Heparin 5000 units/ml inj SUBQ SCH (08:45)
[2016-09-14 11:40] VITALS: BP 111/45
[2016-09-14] MEDS ORDERED: Tubing IV Secondary IV ONE (14:21)
[2016-09-14] MEDS ORDERED: Pneumococcal Vaccine 25mcg/0.5ml IM ONE (19:30)
--- NOTE | 2016-09-15 15:06 | Cardiology Report ---
APPROVED REPORT EKG Measurement Heart [id number] Normal sinus rhythm Septal infarct, age undetermined Abnormal ECG
--- NOTE | 2016-09-17 08:49 | Cardiology Report ---
APPROVED REPORT EXAM: Two-dimensional and M-mode echocardiogram with Doppler and color Doppler. INDICATION Left Ventricular Function M-Mode DIMENSIONS IVSd0.8 (0.7-1.1cm)Left Atrium (MM)3.8 (1.6-4.0cm) LVDd5.4 (3.5-5.6cm)Aortic Root2.3 (2.0-3.7cm) PWd0.9 (0.7-1.1cm)Aortic Cusp Exc.1.5 (1.5-2.0cm) LVDs3.7 (2.5-4.0cm) PWs1.1 cm Normal left ventricular chamber size, systolic function and wall motion. Left ventricular ejection fraction estimated to be 55 %. No evidence of ventricular hypertrophy. Anterior Echo-free space, may be due to pericardial fat or effusion. All other cardiac chamber sizes are within normal limits. Mild focal aortic valve sclerosis with adequate cusp excursion. Mildly thickened mitral valve leaflets with normal excursion. Mild mitral annulus and aortic root calcification. Normal pulmonic valve structure. Normal tricuspid valve structure. IVC at normal size with physiologic collapse. A color flow and spectral Doppler study was performed and revealed: No aortic regurgitation. Mild to moderate mitral regurgitation. Mitral diastolic velocities suggest reduced left ventricular relaxation (Grade I). Trace tricuspid regurgitation. Tricuspid systolic velocities suggests peak right ventricular systolic pressure of 10 mmHg. No pulmonic regurgitation present.
--- NOTE | 2016-09-17 12:20 | Discharge Summary ---
Discharge Summary Hospital Course Date of Admission Sep 12, 2016 at 19:17 Date of Discharge Sep 14, 2016 at 18:49 Admitting Diagnosis syncope HPI Adrienne Ramirez is a 66 year old female who was admitted on Sep 12, 2016 at 19:17 for Syncope Hospital Course dc summary #[id number] Discharge Medications Continued Medications: Aspirin* (Aspir 81*) 81 Mg Tablet.dr 81 MG ORAL DAILY, TAB Metformin Hcl* (Metformin Hcl*) 500 Mg Tablet 500 MG ORAL TWICE A DAY, TAB Discharge Condition Upon Discharge: stable Discharge Disposition Patient was discharged to Home () Discharge Diagnoses: Discharge Instructions Discharge Instructions Special Instructions I have been assigned to complete a D/C Summary on this account. I was not involved in the patient management Elena De La Torre NP (Vanchtein) Sep 17, 2016 12:20
--- NOTE | 2016-09-18 00:48 | Discharge Summary 2 SIG ---
DATE OF ADMISSION: 09/12/2016 DATE OF DISCHARGE: 09/14/2016 REASON FOR ADMISSION : 66 years old female, with history of diabetes, hypertension, CAD with stents, was brought in ED for evaluation after a fall. She was unable to explain how it happened. The patient has a history of recurrent falls. At this time, she hit her face, both knees, and right elbow. She also had a laceration on the right forehead with minimal bleeding. Reported some headache and dizziness. There was no chest pain, palpitation, shortness of breath, nausea, vomiting, dysuria, and hematuria. No neck pain, no change in vision. The patient had undergone repair of a laceration at the emergency room. The patient had a x-ray of both knees and right elbow, which revealed no acute fracture or dislocation. Chest x-ray revealed no acute cardiopulmonary disease. CT of the head revealed no acute intracranial pathology, but was consistent with extensive cerebrovascular disease with old right frontal lobe infarct. Urinalysis was suggestive of UTI. EKG revealed sinus rhythm. Troponin was negative. The patient was started on IV fluids. Analgesia was provided. Tetanus shot was given. The patient was transferred to the telemetry floor for further management. ADMITTING DIAGNOSES: 1. Status post fall with history of recurrent fall. 2. Possible syncope. 3. Facial laceration, status post repair. 4. Bilateral knee contusion. 5. Right elbow contusion. 6. Diabetes. 7. Hypertension. 8. Coronary artery disease with stented coronary arteries. 9. Acute encephalopathy. HOSPITAL STAY: The patient was admitted to telemetry floor. Cardiology and Neurology consult were requested. Residential Subcontractor had seen the patient. No evidence of any arrhythmia on telemetry, troponin negative, no ischemic changes on ECG. The patient with a history of coronary artery disease and multiple stents. Aspirin continued. Echocardiogram revealed ejection fraction of 55% with ventricular systolic pressure of 10. No evidence of left ventricular hypertrophy. [id number] mitral regurgitation. Carotid Duplex revealed minimal stenosis bilaterally. Again, full cardiac workup for possible cardiac arrhythmia was negative. Noted orthostatic blood pressure. IV fluids provided. All antihypertensive medications were on hold. Vital signs were closely monitored, including orthostatic. Fall precautions were maintained. The patient was working with physical and occupational therapists. Neurologist had seen and evaluated the patient. Per neurologist, the patient had significant head trauma and probably mild cerebral concussion due to the clinical presentation of headache and dizziness. Per neurologist, cause of fall probably multifactorial: mild diabetic peripheral neuropathy, orthostatic changes, left hip flexor weakness. Also should be considered possible brief loss of consciousness ( even though the patient was unable to recall), mild anxiety. CT head was negative, carotid Duplex with minimal stenosis, no history and/or evidence of seizures. Per neurologist, patient needs exclusively use cane or walker with ambulation and will benefit from home PT/OT therapy. Blood sugar was managed with sliding scale of insulin and was stable. Pain management was provided. The patient was started on empiric antibiotics for urinary tract infection. Urine culture revealed mixed gram-positive organism colony count of 20 to 30. Antibiotic discontinued. Colostomy care provided. patietnw as stable for discharge. DISCHARGE DIAGNOSES: 1. Status post fall with history of recurrent falls. 2. Possible syncope. 3. Forehead laceration, status post repair. 4. Blunt head trauma with mild concussion. 5. Acute encephalopathy. 6. Extensive cerebrovascular disease with old right frontal lobe infarct. 7. Bilateral knee contusion. 8. Right elbow contusion. 9. Diabetes. 10. History of hypertension. 11. Coronary artery disease with stented coronary arteries. 13. Diabetic polyneuropathy. 14. Orthostatic hypotension DISCHARGE MEDICATIONS: See medication reconciliation list. DISCHARGE INSTRUCTIONS: The patient was discharged to home. Follow up with the primary medical doctor as needed. Chet Dewey M.D. I have been assigned to dictate discharge summary on this account and I was not involved in the patient's management. Elena rodriguezjaja NJb ADAMS: Renaldo JOB#: [id number] CC: MARYANNE
--- NOTE | 2016-09-18 12:18 | Diagnostic Imaging Report ---
APPROVED REPORT CPT Code: 96087 Vascular Symptoms Dizziness and Vertigo Risk Factors Diabetes Doppler Spectral Velocity Analysis RightLeft RIGHT SIDE: CCA/BULB- Imaging reveals irregular, minimal plaque in the carotid bulb and carotid artery. Imaging reveals irregular plaque in the external carotid artery. The Doppler spectral flow analysis indicates the degree of stenosis is minimal (10%-30%) in the common carotid artery, and minimal (10% - 30%) in the external carotid artery. Imaging reveals no significant plaque in the internal carotid artery. VERTEBRAL- The vertebral artery is patent, without evidence of stenosis or steal. LEFT SIDE: CCA/BULB- Imaging reveals irregular, minimal plaque in the carotid bulb. Imaging reveals irregular plaque in the extracranial internal carotid artery. The Doppler spectral flow analysis indicates the degree of stenosis is minimal (10%-30%) in the internal carotid artery. Imaging reveals no significant plaque in the external carotid artery. VERTEBRAL- The vertebral artery is patent, without evidence of stenosis or steal.
== END 2016-09-14 18:49 | disposition home or self-care (01) | DRG 604 ==
LOC: EDBD 18:13 → EMR 19:13 → 2E 19:17 → EDBEDREQ 20:48 → 2E 09-13 10:02
PROC: 0HQ1XZZ Repair Face Skin, External Approach (ICD-10-PCS; principal; 2016-09-12)
DX: S01.81XA Laceration without foreign body of other part of head, initial encounter (principal); G93.40 Encephalopathy, unspecified; I67.82 Cerebral ischemia; E11.42 Type 2 diabetes mellitus with diabetic polyneuropathy; R55 Syncope and collapse; S06.0X9A Concussion with loss of consciousness of unspecified duration, initial encounter; S50.00XA Contusion of unspecified elbow, initial encounter; S80.00XA Contusion of unspecified knee, initial encounter; W19.XXXA Unspecified fall, initial encounter; I25.10 Atherosclerotic heart disease of native coronary artery without angina pectoris; Z88.8 Allergy status to other drugs, medicaments and biological substances; Z95.5 Presence of coronary angioplasty implant and graft; Z86.73 Personal history of transient ischemic attack (TIA), and cerebral infarction without residual deficits; Z43.3 Encounter for attention to colostomy; Z23 Encounter for immunization; I25.2 Old myocardial infarction; Z96.642 Presence of left artificial hip joint
CPT/HCPCS: 36415; 70450; 71010; 80048; 80053; 80061; 81003; 82550; 82962; 83880; 84443; 84484; 85025; 85610; 85730; 87086; 90732; 93005; 93306; 93880; J1815; J2405; J8499

== ENCOUNTER 2018-02-27 17:04 | Inpatient (IN) | payer MEDICARE, MEDICAID ==
[~2018-02-27] VITALS: Ht 165.1 cm; Wt 90.7 kg
[~2018-02-27 17:04] MED LIST: ASPIR 8181 MG ORAL; METFORMIN HCL500 M1 ORAL
[2018-02-27] MEDS ORDERED: Morphine Sulfate 2mg/ml Inj(IV/IM USE ONLY) IM ONE (17:45)
[2018-02-27 18:05] VITALS: BP 137/66
[2018-02-27] MEDS ORDERED: Ampicillin/Sulbactam Sod 3 GM in NS 110 ML IVPB ONE (19:30)
[2018-02-27 19:59] LABS: BASOPHILS % (AUTO) 1.2 % (0.0-2.0); HEMATOCRIT 39.7 % (37.0-47.0); HEMOGLOBIN 13.7 G/DL (12.0-16.0); LYMPHOCYTES % (AUTO) 34.8 % (20.0-45.0); MEAN CORPUSCULAR VOLUME 93 FL (80-99); MONOCYTES % (AUTO) 8.6 % (1.0-10.0); NEUTROPHILS % (AUTO) 53.4 % (45.0-75.0); PLATELET COUNT 242 K/UL (150-450); RED BLOOD COUNT 4.26 M/UL (4.20-5.40); RED CELL DISTRIBUTION WIDTH 11.7 % (11.6-14.8); WHITE BLOOD COUNT 4.5 K/UL (4.8-10.8)
[2018-02-27] MEDS ORDERED: Morphine Sulfate 4mg/ml Inj (IV USE ONLY) IVP ONE ×2 (20:00→22:45)
[2018-02-27 20:09] LABS: ANION GAP 6 mmol/L (5-15); BLOOD UREA NITROGEN 12 mg/dL (7-18); CARBON DIOXIDE 32 MMOL/L (21-32); CHLORIDE 104 MMOL/L (98-107); CREATININE 0.9 MG/DL (0.55-1.30); SODIUM 142 MMOL/L (136-145)
[2018-02-27 20:13] LABS: ALANINE AMINOTRANSFERASE 27 U/L (12-78); ALBUMIN 3.8 G/DL (3.4-5.0); ALKALINE PHOSPHATASE 90 U/L (46-116); ASPARTATE AMINO TRANSFERASE 18 U/L (15-37); BILIRUBIN,TOTAL 0.3 MG/DL (0.2-1.0)
[2018-02-27 20:31] VITALS: BP 156/80
[2018-02-27 21:39] LABS: APPEARANCE,URINE CLEAR; BILIRUBIN, URINE NEGATIVE (NEGATIVE); COLOR,URINE PALE YELLOW; GLUCOSE, URINE (UA) NEGATIVE (NEGATIVE); KETONES,URINE NEGATIVE (NEGATIVE); LEUKOCYTE ESTERASE ,URINE NEGATIVE (NEGATIVE); NITRITE,URINE NEGATIVE (NEGATIVE); PH,URINE 8 (4.5-8.0); PROTEIN,URINE NEGATIVE (NEGATIVE); UROBILINOGEN,URINE NORMAL MG/DL (0.0-1.0)
--- NOTE | 2018-02-27 22:11 | Emergency Room Report ---
History of Present Illness General Chief Complaint: Multiple Trauma/Fall Source: Patient, Medical Record Present Illness HPI 67-year-old female presents ED for evaluation. Patient is status post mechanical fall. States she tripped and fell in the bathroom today hitting her head. Presents with headache and neck pain, right shoulder pain and left leg pain. Pain is throbbing, 10 out of 10, nonradiating. Denies photophobia or blurry vision. Denies nausea and vomiting. Denies chest pain. States that she had a fasciotomy performed on her left leg previously and states that the leg appears red and swollen. Denies fevers or chills. Denies any discharge. No other aggravating relieving factors. Denies any other associated symptoms Allergies: Coded Allergies: GLIPIZIDE (Verified Allergy, Mild, GENERIC GETS RASH, 01/21/09) Uncoded Allergies: NITROGLYCERINE PASTE (Allergy, Unknown, 09/12/16) Patient History Past Medical History: DM, HTN, MD, other - colostomy Past Surgical History: none Pertinent Family History: none Social History: Denies: smoking, alcohol use, drug use Now: No Immunizations: UTD Reviewed Nursing Documentation: PMH: Agreed; PSxH: Agreed Nursing Documentation-PMH Past Medical History: No History, Except For Hx Cardiac Problems: Yes - Stents x 5 Hx Hypertension: Yes Hx Diabetes: Yes Hx Cancer: No Hx Gastrointestinal Problems: Yes - colostomy bag 2016 Hx Neurological Problems: No Review of Systems All Other Systems: negative except mentioned in HPI Physical Exam Vital Signs Date Time Temp Pulse Resp B/P (MAP) Pulse Ox O2 Delivery O2 Flow Rate FiO2 02/27/18 17:28 97.9 71 14 137/66 92 Room Air 97.9 Sp02 EP Interpretation: reviewed, normal General Appearance: no apparent distress, alert, GCS 15, non-toxic Head: normocephalic, atraumatic Eyes: bilateral eye normal inspection, bilateral eye PERRL ENT: hearing grossly normal, normal pharynx, no angioedema, normal voice Neck: full range of motion, supple/symm/no masses, tender midline Respiratory: chest non-tender, lungs clear, normal breath sounds, speaking full sentences Cardiovascular #1: regular rate, rhythm, no edema Cardiovascular #2: 2+ carotid (R), 2+ carotid (L), 2+ radial (R), 2+ radial (L) , 2+ dorsalis pedis (R), 2+ dorsalis pedis (L) Gastrointestinal: normal bowel sounds, non tender, soft, non-distended, no guarding, no rebound Rectal: deferred Genitourinary: normal inspection, no CVA tenderness Musculoskeletal: back normal, gait/station normal, normal range of motion, tender - LLE Neurologic: alert, oriented x3, responsive, motor strength/tone normal, sensory intact, speech normal Psychiatric: judgement/insight normal, memory normal, mood/affect normal, no suicidal/homicidal ideation Reflexes: 3+ bicep (R), 3+ bicep (L), 3+ tricep (R), 3+ tricep (L), 3+ knee (R) , 3+ knee (L) Skin: other - erythema/induration to surgical scar on LLE. no discharge Lymphatic: no adenopathy Medical Decision Making Diagnostic Impression: Primary Impression: Unsteady gait Additional Impressions: Cellulitis of left lower extremity Opiate dependence Qualified Codes: F11.29 - Opioid dependence with unspecified opioid-induced disorder Head injury Qualified Codes: S09.90XA - Unspecified injury of head, initial encounter ER Course Hospital Course 67-year-old female presents to ED status post fall in bathroom with head injury. Differential diagnoses include: fracture, dislocation, brain injury Clinical course Patient placed on stretcher. on playground monitor. After initial history and physical I ordered labs, CT, xrays, pain meds labs reviewed- no leukocytosis, hemoglobin/hematocrit ok, electrolytes okay, troponins negative X-rays of right shoulder, left tib-fib and left ankle show no acute fracture CT head and CT C-spine negative I spoke to PMD Dr. Mack; concern for unsteady gait with repeated falls and the patient. Patient also has persistent cellulitis to her left lower extremity status post site of fasciotomy. She given multiple rounds of pain meds with continued pain. I reviewed CURES and patient receieves extensive narcotic medication on monthly basis Case discussed with Dr. Mack and he agreed to accept the patient to his service for further care and support I. I feel this is a highly complex case requiring extensive working including EKG/Rhythm strip, Xray/CT/US, Blood/urine lab work, repeat exams while in ED, and administration of strong opiates/narcotics for pain control, admission to hospital or close patient follow up. Diagnosis - unsteady gait, cellulitis of left lower extremity, opiate dependence , head injury admitted to floor in serious condition Labs Test 02/27/18 19:40 02/27/18 21:35 White Blood Count 4.5 K/UL (4.8-10.8) Red Blood Count 4.26 M/UL (4.20-5.40) Hemoglobin 13.7 G/DL (12.0-16.0) Hematocrit 39.7 % (37.0-47.0) Mean Corpuscular Volume 93 FL (80-99) Mean Corpuscular Hemoglobin 32.2 PG (27.0-31.0) Mean Corpuscular Hemoglobin Concent 34.6 G/DL (32.0-36.0) Red Cell Distribution Width 11.7 % (11.6-14.8) Platelet Count 242 K/UL (150-450) Mean Platelet Volume 6.1 FL (6.5-10.1) Neutrophils (%) (Auto) 53.4 % (45.0-75.0) Lymphocytes (%) (Auto) 34.8 % (20.0-45.0) Monocytes (%) (Auto) 8.6 % (1.0-10.0) Eosinophils (%) (Auto) 2.0 % (0.0-3.0) Basophils (%) (Auto) 1.2 % (0.0-2.0) Sodium Level 142 MMOL/L (136-145) Potassium Level 4.0 MMOL/L (3.5-5.1) Chloride Level 104 MMOL/L (98-107) Carbon Dioxide Level 32 MMOL/L (21-32) Anion Gap 6 mmol/L (5-15) Blood Urea Nitrogen 12 mg/dL (7-18) Creatinine 0.9 MG/DL (0.55-1.30) Estimat Glomerular Filtration Rate > 60 mL/min (>60) Glucose Level 100 MG/DL (74-106) Lactic Acid Level 0.70 mmol/L (0.4-2.0) Calcium Level 9.0 MG/DL (8.5-10.1) Total Bilirubin 0.3 MG/DL (0.2-1.0) Aspartate Amino Transf (AST/SGOT) 18 U/L (15-37) Alanine Aminotransferase (ALT/SGPT) 27 U/L (12-78) Alkaline Phosphatase 90 U/L (46-116) Total Protein 7.7 G/DL (6.4-8.2) Albumin 3.8 G/DL (3.4-5.0) Globulin 3.9 g/dL Albumin/Globulin Ratio 1.0 (1.0-2.7) Urine Color Pale yellow Urine Appearance Clear Urine pH 8 (4.5-8.0) Urine Specific [place] 1.010 (1.005-1.035) Urine Protein Negative (NEGATIVE) Urine Glucose (UA) Negative (NEGATIVE) Urine Ketones Negative (NEGATIVE) Urine Blood Negative (NEGATIVE) Urine Nitrite Negative (NEGATIVE) Urine Bilirubin Negative (NEGATIVE) Urine Urobilinogen Normal MG/DL (0.0-1.0) Urine Leukocyte Esterase Negative (NEGATIVE) Other X-Ray Diagnostic Results Other X-Ray Diagnostic Results #1: X-Ray ordered: R shoulder # of Views/Limited Vs Complete: 3 View Indication: Pain EP Interpretation: Yes Interpretation: no dislocation, no soft tissue swelling, no fractures Impression: No acute disease Electronically Signed by: Electronically signed by Carlos Villarreal MD Other X-Ray Diagnostic Results #2: X-Ray ordered: L tibfib # of Views/Limited Vs Complete: 3 View Indication: Pain EP Interpretation: Yes Interpretation: no dislocation, no soft tissue swelling, no fractures Impression: No acute disease Electronically Signed by: Electronically signed by Carlos Villarreal MD Other X-Ray Diagnostic Results #3: X-Ray ordered: L ankle # of Views/Limited Vs Complete: 3 View Indication: Pain EP Interpretation: Yes Interpretation: no dislocation, no soft tissue swelling, no fractures Impression: No acute disease Electronically Signed by: Electronically signed by Carlos Villarreal MD CT/MRI/US Diagnostic Results CT/MRI/US Diagnostic Results #1: Imaging Test Ordered: CT Head Impression no acute process CT/MRI/US Diagnostic Results #2: Imaging Test Ordered: CT Cspine Impression no acute process Last Vital Signs Date Time Temp Pulse Resp B/P (MAP) Pulse Ox O2 Delivery O2 Flow Rate FiO2 02/27/18 20:31 67 14 156/80 97 Room Air 02/27/18 19:58 97.9 Status: improved Disposition: ADMITTED INPATIENT Condition: Serious Referrals: NOT CHOSEN IPA/,REFERRING (PCP) Carlos Villarreal MD Feb 27, 2018 22:11
[2018-02-27 23:05] VITALS: BP 158/79
[2018-02-28] VITALS: BP 153/80
[2018-02-28] MEDS: Morphine Sulfate 4mg/ml Inj (IV USE ONLY) IVP PRN ×3 (02:35→20:46)
[2018-02-28] MEDS ORDERED: HYDROcodone/Acetamin 10/325 tab ORAL PRN (03:45)
[2018-02-28] MEDS ORDERED: Zolpidem 5mg tab ORAL PRN (03:45)
[2018-02-28] MEDS ORDERED: LORazepam 1mg tab ORAL PRN (03:45)
[2018-02-28 04:00] VITALS: BP 162/75
[2018-02-28] MEDS: metFORMIN 500mg tab ORAL SCH ×2 (06:18→16:45)
[2018-02-28] MEDS: Heparin 5000 units/ml inj SUBQ SCH ×3 (06:20→21:43)
[2018-02-28] MEDS: traMADol 50mg tab ORAL SCH ×4 (06:20→21:42)
[2018-02-28] MEDS: NovoLOG Insulin Flexpen SUBQ SCH ×4 (06:30→20:50)
[2018-02-28] MEDS: ceFAZolin 1gm/50ml Premix 50 ML IV SCH ×3 (07:26→21:42)
[2018-02-28 08:00] VITALS: BP 147/86
--- NOTE | 2018-02-28 08:24 | Diagnostic Imaging Report ---
Indication: And neck pain, status post fall earlier today Technique: Spiral acquisitions obtained through the cervical spine. No IV contrast utilized. Multiplanar reconstructions were generated. Total dose length product 1760.15 mGycm. CTDIvol(s) 70.38,19.65 mGy. Dose reduction achieved using automated exposure control. Comparison: none Findings: There is reversal of the normal cervical lordosis in the lower cervical spine. There is slight anterior offset of C3 on C4 and C4 on C5. The bony alignment is otherwise normal. No acute fractures. No dislocations. No prevertebral soft tissue swelling. There is degenerative narrowing of the anterior atlantoaxial joint At C2-3, there is mild narrowing of the right neural foramen due to facet arthrosis on the right. The disc spaces preserved. No significant disc bulge or protrusion. At C3-4, there is bilateral facet arthrosis. This results in moderate neural foraminal narrowing on the right. No significant disc bulge or protrusion or spinal stenosis. The disc spaces preserved. At C4-5, no significant disc bulge or protrusion, spinal stenosis, or neural foraminal narrowing. There is mild facet arthrosis bilaterally. At C5-6, there is severe degenerative disc narrowing. Posterior disc bulge and osteophyte complex results in mild to moderate narrowing of the spinal canal. Uncinate hypertrophy and facet arthrosis results in severe narrowing of the right neural foramen. There is mild narrowing of the left neural foramen. There is bilateral facet arthrosis. At C6-7, there is bilateral facet arthrosis, particularly on the left. There is mild narrowing of the left neural foramen. No significant disc bulge or protrusion or spinal stenosis. The disc spaces preserved. At C7-T1, no significant disc bulge or protrusion, spinal stenosis, or neural foraminal stenosis There is fairly extensive arterial calcification noted. The included upper aerodigestive tract is unremarkable. Impression: No acute bony trauma Degenerative changes, as detailed above This agrees with the preliminary interpretation provided overnight by [facility] telerad[facility] service. The CT scanner at [facility] is accredited by the [employer] and the scans are performed using protocols designed to limit radiation exposure to as low as reasonably achievable to attain images of sufficient resolution adequate for diagnostic evaluation.
--- NOTE | 2018-02-28 08:34 | Diagnostic Imaging Report ---
Indication: Pain, status post fall Technique: 2 views of the left tibia and fibula Comparison: none Findings: No acute fractures. No dislocations. Joint spaces are preserved. Impression: Negative
--- NOTE | 2018-02-28 08:35 | Diagnostic Imaging Report ---
Indication: Pain, status post fall Technique: 3 views of the right shoulder Comparison: none Findings: No acute fractures. No dislocations. The joint spaces are preserved Impression: Negative
--- NOTE | 2018-02-28 08:36 | Diagnostic Imaging Report ---
Indication: Ankle pain, status post fall Technique: 3 views of the left ankle Comparison: none Findings: No acute fractures. No dislocations. The joint spaces are preserved Impression: Negative
[2018-02-28] MEDS: Aspirin Baby 81mg ORAL SCH (08:48)
[2018-02-28] MEDS ORDERED: Levemir Flexpen SUBQ SCH (09:00)
--- NOTE | 2018-02-28 10:46 | History & Physical ---
History and Physical History & Physicial pt seen and examined full note dictated [id number] Karson mack MD [phone] Karson Mack MD Feb 28, 2018 10:46
[2018-02-28 12:00] VITALS: BP 121/82
[2018-02-28] MEDS ORDERED: TAMSULOSIN HCL0.4 MG ORAL (12:28)
[2018-02-28] MEDS ORDERED: URECHOLINE25 M1 ORAL (12:28)
[2018-02-28] MEDS ORDERED: TIZANIDINE HCL4 MG ORAL (12:28)
[2018-02-28] MEDS ORDERED: PAXIL20 MG ORAL (12:28)
[2018-02-28] MEDS ORDERED: PERCOCET 10-321 EAC1 PO (12:28)
[2018-02-28] MEDS ORDERED: LOSARTAN POTASS50 MG ORAL (12:28)
[2018-02-28] MEDS ORDERED: PLAVIX75 MG ORAL (12:28)
[2018-02-28] MEDS ORDERED: PANTOPRAZOLE SO40 MG ORAL (12:28)
[2018-02-28] MEDS ORDERED: LANTUS SOL100 UNIT/1 SUBQ (12:28)
[2018-02-28] MEDS ORDERED: TRAZODONE HCL150 MG ORAL (12:28)
[2018-02-28] MEDS ORDERED: RANEXA500 MG ORAL (12:28)
[2018-02-28] MEDS ORDERED: LIPITOR80 MG ORAL (12:28)
[2018-02-28] MEDS ORDERED: XANAX0.5 MG ORAL (12:32)
[2018-02-28] MEDS: Bethanechol 25mg Tab ORAL SCH ×2 (13:23→17:29)
--- NOTE | 2018-02-28 14:58 | Diagnostic Imaging Report ---
Indications: Head and neck pain status post fall Technique: Spiral acquisitions obtained through the brain. Angled axial and coronal 5 x 5 mm slices were reconstructed. Total dose length product 1760.15 mGycm. CTDI vol(s) 70.38,19.65 mGy. Dose reduction achieved using automated exposure control Comparison: 09/12/2016 Findings: Again demonstrated is encephalomalacia of the anteromedial right frontal lobe. Again demonstrated is age-related enlargement of the ventricles and extra-axial CSF spaces. There is fairly extensive periventricular deep white matter low-attenuation. Lacunar infarct is seen in the anterior left basal ganglia region. No acute intracranial hemorrhage nor edema, mass effect, nor midline shift. Otherwise normal waite-white differentiation. Intact calvarium. Visualized orbits and sinuses are unremarkable. Impression: Chronic and age-related changes, including old infarcts as described. Negative for acute intracranial bleed or mass effect This agrees with the preliminary interpretation provided overnight by [facility] service. The CT scanner at [facility] is accredited by the [employer] and the scans are performed using protocols designed to limit radiation exposure to as low as reasonably achievable to attain images of sufficient resolution adequate for diagnostic evaluation.
[2018-02-28 16:00] VITALS: BP 145/78
[2018-02-28 20:00] VITALS: BP 153/67
--- NOTE | 2018-02-28 20:45 | History and Physical Report ---
DATE OF ADMISSION: 02/27/2018 CHIEF COMPLAINT: Frequent falls and left leg pain. HISTORY OF PRESENT ILLNESS: This is a 67-year-old pleasant woman with a history of insulin-dependent diabetes, hypertension, coronary artery disease status post PCI and stent, status post diverting colostomy for the complex rectal nonhealing ulcer, who has a recurrent trip and fall at home leading to emergency room visits because of the loss of balance. The patient also had a large laceration over the left lower extremity over the jackson that is healing. However, recently the patient was seen at [facility] and was started on antibiotics orally, Keflex. The patient was seen by me last week in my office. The patient had some improvement, but still has significant pain over the heel and not healing cellulitis. The patient subsequently had another fall at home and came to the emergency room. The patient denies any fever or chills. No shortness of breath. No nausea or vomiting. No diarrhea or constipation. PAST MEDICAL HISTORY: As above. PAST SURGICAL HISTORY: Reviewed. MEDICATIONS: Medication reconciliation reviewed at length. ALLERGIES: To glipizide and nitroglycerin paste. FAMILY HISTORY: Noncontributory. SOCIAL HISTORY: The patient lives with sister at home. No smoking or alcohol. No illicit drug use. Usually walks with a cane. REVIEW OF SYSTEMS: A 14-point review of systems done.CONSTITUTIONAL: No malaise or fatigue. No fever. No chills. HEENT: No change in vision. No tinnitus. No epistaxis. No dysphagia. CARDIAC: No chest pain. No palpitations. History of coronary artery disease status post stent. LUNGS: No shortness of breath. No wheezing. No history of asthma or COPD. ABDOMEN: No nausea, vomiting, or abdominal pain. History of colostomy due to rectal laceration, nonhealing, post fall in the bathroom. NEUROLOGIC: No history of CVA or history of TIA. ENDOCRINE: History of hypertension and diabetes, insulin requiring. All other systems reviewed, negative except what is mentioned above. PHYSICAL EXAMINATION: GENERAL: The patient lying, in no acute distress. VITAL SIGNS: Blood pressure 137/66, pulse oximetry is 92% on room air, heart rate 71, and temperature 97.9 degrees. HEAD AND NECK: Supple. CARDIAC: S1 and S2 are normal. No murmur, rub or gallop. LUNGS: Clear. ABDOMEN: Soft, nontender, nondistended. No guarding or rebound. The patient had colostomy. Stool in the bag. EXTREMITIES: The patient has a large healing scar from recent laceration over the left jackson pain with some erythema around and tenderness and some swelling of the left lower extremities. NEUROLOGIC: No focal sensorimotor deficits. LABORATORY AND DIAGNOSTIC DATA: WBC 4.5, hemoglobin 13.7, hematocrit 39.7, and platelets 242. Sodium 140, potassium 4, chloride 104, bicarbonate 32, BUN 12, creatinine 0.9, and glucose 100. Lactate 0.7. Calcium 9. AST 18, ALT 27, and alkaline phosphatase 90. Albumin 3.8. IMPRESSION: 1. Left lower extremity swelling and cellulitis. 2. History of recurrent falls. 3. Balance disorder. 4. History of coronary artery disease status post stent. 5. Diabetes and hypertension. 6. Muscle weakness. 7. Gait impairment. 8. Depression. 9. Anxiety. PLAN: 1. Admit to Medical/Surgical inpatient. 2. IV antibiotics. 3. Leg evaluation. 4. The patient had a recent lower extremity venous Doppler, it is negative for DVT last week. 5. Glycemic control. 6. Insulin. 7. Continue psychiatric medications. 8. DVT and GI prophylaxis. 9. Pain control. 10. Physical therapy evaluation. 11. Discussed with social problems specialist. The patient will be placed in a care home facility upon discharge for gait training as the patient has frequent falls at home and inability to balance herself. 12. Case discussed with Physical therapy. 13. Code Status, Full Code. Time spent in patient [id number] and coordination of care and answered all her questions and concerns 70 minutes. Karson Mack M.D. DR: RADHA JOB#: [id number] CC:
[2018-02-28] MEDS: Tamsulosin 0.4mg cap ORAL SCH (20:46)
[2018-02-28] MEDS: Atorvastatin 80mg tab ORAL SCH (20:46)
[2018-02-28] MEDS: TraZODone 50mg tab ORAL SCH (20:46)
[2018-02-28] MEDS: Ranolazine 500mg tab ORAL SCH (20:46)
[2018-02-28] MEDS: ALPRAZolam 0.5mg tab ORAL PRN (21:50)
[2018-03-01] VITALS (7 sets, daily range): BP systolic 98–146; BP diastolic 55–81
[2018-03-01] MEDS: ceFAZolin 1gm/50ml Premix 50 ML IV SCH ×3 (06:00→20:28)
[2018-03-01] MEDS: Heparin 5000 units/ml inj SUBQ SCH ×3 (06:00→20:31)
[2018-03-01] MEDS: metFORMIN 500mg tab ORAL SCH ×2 (06:00→17:10)
[2018-03-01] MEDS: NovoLOG Insulin Flexpen SUBQ SCH ×4 (06:01→20:46)
[2018-03-01] MEDS: traMADol 50mg tab ORAL SCH ×3 (06:01→20:29)
[2018-03-01] MEDS: Morphine Sulfate 4mg/ml Inj (IV USE ONLY) IVP PRN ×2 (06:50→20:30)
[2018-03-01] MEDS: Aspirin Baby 81mg ORAL SCH (09:05)
[2018-03-01] MEDS: Bethanechol 25mg Tab ORAL SCH ×3 (09:05→17:10)
[2018-03-01] MEDS: Losartan 50mg tab ORAL SCH (09:05)
[2018-03-01] MEDS: Ranolazine 500mg tab ORAL SCH ×2 (09:05→20:29)
[2018-03-01] MEDS: PARoxetine 20mg tab ORAL SCH (09:06)
[2018-03-01] MEDS: Levemir Flexpen SUBQ SCH (09:14)
[2018-03-01] MEDS: TraZODone 50mg tab ORAL SCH (20:28)
[2018-03-01] MEDS: ALPRAZolam 0.5mg tab ORAL PRN (20:29)
[2018-03-01] MEDS: Atorvastatin 80mg tab ORAL SCH (20:29)
[2018-03-01] MEDS: Tamsulosin 0.4mg cap ORAL SCH (20:29)
--- NOTE | 2018-03-01 23:38 | Internal Med Progress Note ---
Subjective Date of Service: Mar 01, 2018 Physician Name Karson Mack Attending Physician Karson Mack MD Past Medical History reviewed no changes Past Surgical History reviewed no changes Current Medications Medications (Trade) Dose Ordered Sig/Bart Route PRN Reason Start Time Stop Time Status Last Admin Dose Admin Acetaminophen (Tylenol) 650 mg Q6H PRN ORAL Mild Pain/Temp > 100.5 02/28/18 03:45 03/30/18 03:44 Acetaminophen/ Hydrocodone Bitart ([place] 10/325) 1 tab Q4H PRN ORAL For Pain 02/28/18 03:45 03/07/18 03:44 Alprazolam (Xanax) 0.5 mg QHS PRN ORAL Insomnia 02/28/18 12:45 03/07/18 12:44 03/01/18 20:29 Aspirin (ASA) 81 mg DAILY ORAL 02/28/18 09:00 03/30/18 08:59 03/01/18 09:05 Atorvastatin Calcium (Lipitor) 80 mg BEDTIME ORAL 02/28/18 21:00 03/30/18 20:59 03/01/18 20:29 Bethanechol Chloride (Urecholine) 25 mg THREE TIMES A DAY ORAL 02/28/18 13:00 03/30/18 12:59 03/01/18 17:10 Cefazolin Sodium 50 ml @ 100 mls/hr EVERY 8 HOURS IV 02/28/18 06:00 03/07/18 05:59 03/01/18 20:28 Clopidogrel Bisulfate (Plavix) 75 mg DAILY ORAL 03/01/18 09:00 03/31/18 08:59 03/01/18 09:05 Dextrose (Dextrose 50%) 25 ml STAT PRN IV Hypoglycemia 02/28/18 03:45 03/30/18 03:44 Dextrose (Dextrose 50%) 50 ml STAT PRN IV Hypoglycemia 02/28/18 03:45 03/30/18 03:44 Heparin Sodium (Porcine) (Heparin 5000 units/ml) 5,000 units EVERY 8 HOURS SUBQ 02/28/18 06:00 03/30/18 05:59 03/01/18 20:31 Insulin Aspart (NovoLOG) BEFORE MEALS AND HS SUBQ 02/28/18 06:30 03/30/18 06:29 03/01/18 20:46 Insulin Detemir (Levemir) 20 units DAILY SUBQ 03/01/18 09:00 03/30/18 08:59 03/01/18 09:14 Lorazepam (Ativan) 1 mg Q6H PRN ORAL For Anxiety 02/28/18 03:45 03/07/18 03:44 Losartan Potassium (Cozaar) 50 mg DAILY ORAL 03/01/18 09:00 03/31/18 08:59 03/01/18 09:05 Metformin HCl (Glucophage) 500 mg BIAC ORAL 02/28/18 06:30 03/30/18 06:29 03/01/18 17:10 Morphine Sulfate (Morphine Sulfate) 4 mg Q8H PRN IVP Breakthrough Pain 03/01/18 18:15 03/07/18 02:14 03/01/18 20:30 Ondansetron HCl (Zofran) 4 mg Q4H PRN IVP Nausea & Vomiting 02/28/18 03:45 03/30/18 03:44 03/01/18 13:45 Oxycodone/ Acetaminophen (Percocet 10/325) 1 tab Q6H PRN ORAL Severe Pain (Pain Scale 7-10) 02/28/18 12:45 03/07/18 12:44 03/01/18 23:08 Pantoprazole (Protonix) 40 mg DAILY ORAL 03/01/18 09:00 03/31/18 08:59 03/01/18 09:05 Paroxetine HCl (Paxil) 40 mg DAILY ORAL 03/01/18 09:00 03/31/18 08:59 03/01/18 09:06 Ranolazine (Ranexa ER 500mg) 500 mg EVERY 12 HOURS ORAL 02/28/18 21:00 03/30/18 20:59 03/01/18 20:29 Tamsulosin HCl (Flomax) 0.4 mg BEDTIME ORAL 02/28/18 21:00 03/30/18 20:59 03/01/18 20:29 Tizanidine HCl (Zanaflex) 2 mg TIDPRN PRN ORAL Muscle Spasm 02/28/18 12:45 03/30/18 12:44 Tramadol HCl (Ultram) 50 mg EVERY 8 HOURS ORAL 02/28/18 06:00 8/31/18 05:59 03/01/18 06:01 Trazodone HCl (Desyrel) 50 mg BEDTIME ORAL 02/28/18 21:00 03/30/18 20:59 03/01/18 20:28 Zolpidem Tartrate (Ambien) 5 mg HSPRN PRN ORAL Insomnia 02/28/18 03:45 03/07/18 03:44 Allergies: Coded Allergies: GLIPIZIDE (Verified Allergy, Mild, GENERIC GETS RASH, 01/21/09) Uncoded Allergies: NITROGLYCERINE PASTE (Allergy, Unknown, 09/12/16) Constitutional: Reports: no symptoms HEENT: Reports: no symptoms Cardiovascular: Reports: no symptoms Respiratory: Reports: no symptoms Gastrointestinal/Abdominal: Reports: no symptoms Genitourinary: Reports: no symptoms Neurologic/Psychiatric: Reports: headache, weakness Objective Last Vital Signs Date Time Temp Pulse Resp B/P (MAP) Pulse Ox O2 Delivery O2 Flow Rate FiO2 03/01/18 21:00 Room Air 03/01/18 20:00 97.7 80 18 120/58 (78) 94 97.7 General Appearance: WD/WN, no apparent distress EENT: PERRL/EOMI Neck: non-tender, supple Cardiovascular: normal rate, no gallop/murmur, no JVD Respiratory/Chest: lungs clear, normal breath sounds Abdomen: normal bowel sounds, non tender, soft, no mass Extremities: non-tender Edema: mild edema Skin: warm/dry Microbiology Date/Time Source Procedure Growth Status 02/27/18 19:34 Blood Blood Culture - Preliminary NO GROWTH AFTER 24 HOURS Resulted 02/27/18 19:19 Blood Blood Culture - Preliminary NO GROWTH AFTER 24 HOURS Resulted Intake and Output 02/28/18 03/01/18 19:00 07:00 Intake Total 570 ml 100 ml Balance 570 ml 100 ml Intake Oral 520 ml IV Total 50 ml 100 ml # Voids 5 1 Assessment/Plan Status: doing well, stable, progressing Assessment/Plan IMPRESSION: 1. Left lower extremity swelling and cellulitis. 2. History of recurrent falls. 3. Balance disorder. 4. History of coronary artery disease status post stent. 5. Diabetes and hypertension. 6. Muscle weakness. 7. Gait impairment. 8. Depression. 9. Anxiety. PLAN: IV antibiotics. Leg evaluation. The patient had a recent lower extremity venous Doppler, it is negative for DVT last week. Glycemic control. Insulin. Continue psychiatric medications. DVT and GI prophylaxis. Pain control. Physical therapy evaluation. Discussed with social media content manager 02/28. The patient will be placed in a care home facility upon discharge for gait training as the patient has frequent falls at home and inability to balance herself. Code Status, Full Code. over 25 min spent today over 50% counseling and education. d/w staff and coordination of care Karson Mack MD Mar 01, 2018 23:38
[2018-03-02] VITALS: BP 120/62
[2018-03-02 04:00] VITALS: BP 136/53
[2018-03-02] MEDS: Morphine Sulfate 4mg/ml Inj (IV USE ONLY) IVP PRN ×3 (04:33→21:20)
[2018-03-02] MEDS: ceFAZolin 1gm/50ml Premix 50 ML IV SCH ×2 (05:55→14:23)
[2018-03-02] MEDS: metFORMIN 500mg tab ORAL SCH ×2 (05:56→17:06)
[2018-03-02] MEDS: traMADol 50mg tab ORAL SCH ×3 (05:56→21:42)
[2018-03-02] MEDS: Heparin 5000 units/ml inj SUBQ SCH ×3 (05:58→20:38)
[2018-03-02] MEDS: NovoLOG Insulin Flexpen SUBQ SCH ×4 (06:09→20:39)
[2018-03-02 08:00] VITALS: BP 119/57
[2018-03-02] MEDS: Ranolazine 500mg tab ORAL SCH ×2 (08:50→20:36)
[2018-03-02] MEDS: PARoxetine 20mg tab ORAL SCH (08:50)
[2018-03-02] MEDS: Bethanechol 25mg Tab ORAL SCH ×3 (08:50→17:41)
[2018-03-02] MEDS: Aspirin Baby 81mg ORAL SCH (08:50)
[2018-03-02] MEDS: Levemir Flexpen SUBQ SCH (08:53)
[2018-03-02] MEDS: Losartan 50mg tab ORAL SCH (08:54)
--- NOTE | 2018-03-02 10:13 | Diagnostic Imaging Report ---
EXAM: XR Right Elbow Complete, 3 or More Views CLINICAL HISTORY: PAIN TECHNIQUE: Frontal, lateral and oblique views of the right elbow. COMPARISON: No relevant prior studies available. FINDINGS: Bones/joints: No acute fracture. Soft tissues: No radiodense foreign body. Tubes, lines and devices: Intravenous catheter. IMPRESSION: No acute fracture.
--- NOTE | 2018-03-02 11:03 | Internal Med Progress Note ---
Subjective Date of Service: Mar 02, 2018 Physician Name Karson Mack Attending Physician Karson Mack MD Current Medications Medications (Trade) Dose Ordered Sig/Bart Route PRN Reason Start Time Stop Time Status Last Admin Dose Admin Acetaminophen (Tylenol) 650 mg Q6H PRN ORAL Mild Pain/Temp > 100.5 02/28/18 03:45 03/30/18 03:44 Acetaminophen/ Hydrocodone Bitart ([place] 10/325) 1 tab Q4H PRN ORAL For Pain 02/28/18 03:45 03/07/18 03:44 03/02/18 00:45 Alprazolam (Xanax) 0.5 mg QHS PRN ORAL Insomnia 02/28/18 12:45 03/07/18 12:44 03/01/18 20:29 Aspirin (ASA) 81 mg DAILY ORAL 02/28/18 09:00 03/30/18 08:59 03/02/18 08:50 Atorvastatin Calcium (Lipitor) 80 mg BEDTIME ORAL 02/28/18 21:00 03/30/18 20:59 03/01/18 20:29 Bethanechol Chloride (Urecholine) 25 mg THREE TIMES A DAY ORAL 02/28/18 13:00 03/30/18 12:59 03/02/18 08:50 Cefazolin Sodium 50 ml @ 100 mls/hr EVERY 8 HOURS IV 02/28/18 06:00 03/07/18 05:59 03/02/18 05:55 Clopidogrel Bisulfate (Plavix) 75 mg DAILY ORAL 03/01/18 09:00 03/31/18 08:59 03/02/18 08:50 Dextrose (Dextrose 50%) 25 ml STAT PRN IV Hypoglycemia 02/28/18 03:45 03/30/18 03:44 Dextrose (Dextrose 50%) 50 ml STAT PRN IV Hypoglycemia 02/28/18 03:45 03/30/18 03:44 Heparin Sodium (Porcine) (Heparin 5000 units/ml) 5,000 units EVERY 8 HOURS SUBQ 02/28/18 06:00 03/30/18 05:59 03/02/18 05:58 Insulin Aspart (NovoLOG) BEFORE MEALS AND HS SUBQ 02/28/18 06:30 03/30/18 06:29 03/02/18 06:09 Insulin Detemir (Levemir) 20 units DAILY SUBQ 03/01/18 09:00 03/30/18 08:59 03/02/18 08:53 Lorazepam (Ativan) 1 mg Q6H PRN ORAL For Anxiety 02/28/18 03:45 03/07/18 03:44 03/02/18 00:44 Losartan Potassium (Cozaar) 50 mg DAILY ORAL 03/01/18 09:00 03/31/18 08:59 03/01/18 09:05 Metformin HCl (Glucophage) 500 mg BIAC ORAL 02/28/18 06:30 03/30/18 06:29 03/02/18 05:56 Morphine Sulfate (Morphine Sulfate) 4 mg Q8H PRN IVP Breakthrough Pain 03/01/18 18:15 03/07/18 02:14 03/02/18 04:33 Ondansetron HCl (Zofran) 4 mg Q4H PRN IVP Nausea & Vomiting 02/28/18 03:45 03/30/18 03:44 03/01/18 13:45 Oxycodone/ Acetaminophen (Percocet 10/325) 1 tab Q6H PRN ORAL Severe Pain (Pain Scale 7-10) 02/28/18 12:45 03/07/18 12:44 03/02/18 08:52 Pantoprazole (Protonix) 40 mg DAILY ORAL 03/01/18 09:00 03/31/18 08:59 03/02/18 08:50 Paroxetine HCl (Paxil) 40 mg DAILY ORAL 03/01/18 09:00 03/31/18 08:59 03/02/18 08:50 Ranolazine (Ranexa ER 500mg) 500 mg EVERY 12 HOURS ORAL 02/28/18 21:00 03/30/18 20:59 03/02/18 08:50 Tamsulosin HCl (Flomax) 0.4 mg BEDTIME ORAL 02/28/18 21:00 03/30/18 20:59 03/01/18 20:29 Tizanidine HCl (Zanaflex) 2 mg TIDPRN PRN ORAL Muscle Spasm 02/28/18 12:45 03/30/18 12:44 Tramadol HCl (Ultram) 50 mg EVERY 8 HOURS ORAL 02/28/18 06:00 03/07/18 05:59 03/02/18 05:56 Trazodone HCl (Desyrel) 50 mg BEDTIME ORAL 02/28/18 21:00 03/30/18 20:59 03/01/18 20:28 Zolpidem Tartrate (Ambien) 5 mg HSPRN PRN ORAL Insomnia 02/28/18 03:45 03/07/18 03:44 Allergies: Coded Allergies: GLIPIZIDE (Verified Allergy, Mild, GENERIC GETS RASH, 01/21/09) Uncoded Allergies: NITROGLYCERINE PASTE (Allergy, Unknown, 09/12/16) Constitutional: Reports: no symptoms HEENT: Reports: no symptoms Cardiovascular: Reports: no symptoms Respiratory: Reports: no symptoms Gastrointestinal/Abdominal: Reports: nausea Genitourinary: Reports: no symptoms Neurologic/Psychiatric: Reports: anxiety, weakness Objective Last Vital Signs Date Time Temp Pulse Resp B/P (MAP) Pulse Ox O2 Delivery O2 Flow Rate FiO2 03/02/18 09:00 Room Air 03/02/18 08:54 119/57 03/02/18 08:00 96.4 80 20 91 96.4 General Appearance: no apparent distress, alert EENT: PERRL/EOMI Neck: non-tender, supple Cardiovascular: normal rate, regular rhythm, no gallop/murmur, no JVD Respiratory/Chest: chest wall non-tender, lungs clear, no respiratory distress Abdomen: normal bowel sounds, non tender, soft, no organomegaly, no mass Extremities: non-tender Edema: mild edema Neurologic: alert, oriented x 3, responsive Skin: warm/dry Microbiology Date/Time Source Procedure Growth Status 02/27/18 19:34 Blood Blood Culture - Preliminary NO GROWTH AFTER 48 HOURS Resulted 02/27/18 19:19 Blood Blood Culture - Preliminary NO GROWTH AFTER 48 HOURS Resulted Intake and Output 03/01/18 03/02/18 19:00 07:00 Intake Total 550 ml 290 ml Balance 550 ml 290 ml Intake Oral 500 ml 240 ml IV Total 50 ml 50 ml # Voids 3 2 Assessment/Plan Status: doing well, progressing, tolerating diet Assessment/Plan IMPRESSION: 1. Left lower extremity swelling and cellulitis. 2. History of recurrent falls. 3. Balance disorder. 4. History of coronary artery disease status post stent. 5. Diabetes and hypertension. 6. Muscle weakness. 7. Gait impairment. 8. Depression. 9. Anxiety. PLAN: IV antibiotics. Leg evaluation. The patient had a recent lower extremity venous Doppler, it is negative for DVT last week. Glycemic control. Insulin. Continue psychiatric medications. DVT and GI prophylaxis. Pain control. Physical therapy evaluation. Discussed with manager social responsibility 02/28. The patient will be placed in a [facility] facility upon discharge for gait training as the patient has frequent falls at home and inability to balance herself. DC planning to SNF 03/03 Code Status, Full Code. over 25 min spent today over 50% counseling and education. d/w staff and coordination of care Karson Mack MD Mar 02, 2018 11:03
[2018-03-02 12:00] VITALS: BP 119/65
[2018-03-02 16:00] VITALS: BP 127/62
[2018-03-02 20:00] VITALS: BP 137/86
[2018-03-02] MEDS: ceFAZolin 1gm in D5W 55ml IVP SCH (20:35)
[2018-03-02] MEDS: Atorvastatin 80mg tab ORAL SCH (20:35)
[2018-03-02] MEDS: TraZODone 50mg tab ORAL SCH (20:35)
[2018-03-02] MEDS: Tamsulosin 0.4mg cap ORAL SCH (20:35)
[2018-03-02] MEDS: ALPRAZolam 0.5mg tab ORAL PRN (20:36)
[2018-03-03 04:00] VITALS: BP 115/65
[2018-03-03] MEDS: traMADol 50mg tab ORAL SCH ×2 (06:00→13:37)
[2018-03-03] MEDS: metFORMIN 500mg tab ORAL SCH (06:12)
[2018-03-03] MEDS: Morphine Sulfate 4mg/ml Inj (IV USE ONLY) IVP PRN ×2 (06:12→15:00)
[2018-03-03] MEDS: ceFAZolin 1gm in D5W 55ml IVP SCH ×2 (06:12→13:37)
[2018-03-03] MEDS: Heparin 5000 units/ml inj SUBQ SCH ×2 (06:13→13:39)
[2018-03-03] MEDS: NovoLOG Insulin Flexpen SUBQ SCH ×2 (06:13→12:17)
[2018-03-03 08:00] VITALS: BP 131/52
[2018-03-03] MEDS: Aspirin Baby 81mg ORAL SCH (08:09)
[2018-03-03] MEDS: Bethanechol 25mg Tab ORAL SCH ×2 (08:09→13:37)
[2018-03-03] MEDS: PARoxetine 20mg tab ORAL SCH (08:09)
[2018-03-03] MEDS: Ranolazine 500mg tab ORAL SCH (08:09)
[2018-03-03] MEDS: Losartan 50mg tab ORAL SCH (08:10)
[2018-03-03] MEDS: Levemir Flexpen SUBQ SCH (08:15)
[2018-03-03 12:00] VITALS: BP 108/50
--- NOTE | 2018-03-03 14:05 | Discharge Summary ---
Discharge Summary Hospital Course Date of Admission Feb 27, 2018 at 22:26 Date of Discharge mar 03 Admitting Diagnosis LE cellulitis, unsteady gait, frequent fall HPI Adrienne Ramirez is a 67 year old female who was admitted on Feb 27, 2018 at 22:26 for Le Cellulitis Unsteady Gait Consultations none Hospital Course full DC summary dictated Discharge Condition Upon Discharge: stable Discharge Disposition Patient was discharged to SNF Karson Mack MD Mar 03, 2018 14:05
--- NOTE | 2018-03-03 19:30 | Discharge Summary ---
DATE OF ADMISSION: 02/27/2018 DATE OF DISCHARGE: 03/03/2018 CONTACT DOCTOR: Karson Mack M.D., admission to [facility]. ADMITTING DIAGNOSES: 1. Left lower extremity swelling and cellulitis. 2. Left lower extremity pain. 3. Recurrent falls. 4. Balance disorder. 5. History of coronary artery disease status post stent. 6. Diabetes. 7. Hypertension. 8. Muscle weakness. 9. Gait impairment. 10. Depression. 11. Anxiety. 12. Cognitive impairment. DISCHARGE DIAGNOSES: 1. Left lower extremity swelling and cellulitis. 2. Left lower extremity pain. 3. Frequent falls. 4. Balance disorder. 5. History of coronary artery disease status post stent. 6. Diabetes. 7. Hypertension. 8. Muscle weakness. 9. Gait impairment. 10. Depression. 11. Anxiety. 12. Cognitive impairment. CONSULTANTS: None. HOSPITAL COMPLICATIONS: None. PROCEDURE: Please refer to chart for complete for complete list of procedures. HOSPITAL COURSE: Please refer to initial history and physical for more details. In summary, this is a 67-year-old woman with a history of insulin-dependent diabetes, hypertension, coronary artery disease status post PCI and stent, status post diverting colostomy for complex rectal nonhealing ulcer, who has a recurrent trip and fall at home leading to emergency room visits due to loss of balance. The patient had subsequently a large laceration a few months ago to the left lower extremities. It was healing and now having recurrent cellulitis and this did not respond to Keflex. The patient was admitted for intravenous antibiotic treatment. Pain management as well as the patient now requiring to go to the retirement facility upon discharge. The patient responded well to the treatment with subsided erythema around the lower extremity wound. The patient was able to ambulate with physical therapy was for the patient to go to a retirement facility. The patient required [place], Percocet, and morphine for pain control. At times, the patient had some delirium and altered mental status; however, that cleared. The patient at times does not recollect the event that took place prior. For example, she does not remember if she took her medication or if she saw me coming to visit her in the hospital, but then when after discussion we had during the admitting, she recalled that, yes, I was here to visit the patient and yes, she did take her medication after discussion with the nurse and is checking the logs of the medication list. The patient will have an outpatient neuropsych evaluation for her cognitive impairment if in case might be related to the use of narcotics, opioids, and benzodiazepines. DISPOSITION: longterm facility. DIET: Diabetic cardiac. ACTIVITY: As tolerated with fall precaution. DISCHARGE MEDICATIONS: Please refer to discharge MAR for complete list of medication. I have reviewed at length. CONDITION ON DISCHARGE: Stable. FOLLOW-UP VISIT: I will see the patient in the prison within 3 days. Case discussed with executive secretary social welfare and director of casework services. The patient is safe for discharge to retirement facility today. All the patient's questions and concerns answered. Time spent discharge planning today 40 minutes. Karson Mack M.D. DR: NATHALY JOB#: [id number] CC:
== END 2018-03-03 17:26 | DRG 603 ==
LOC: EMR 21:31 → EDBEDREQ 21:48 → 4E 22:26
DX: L03.116 Cellulitis of left lower limb (principal); F41.9 Anxiety disorder, unspecified; R29.6 Repeated falls; I25.10 Atherosclerotic heart disease of native coronary artery without angina pectoris; Z95.5 Presence of coronary angioplasty implant and graft; E11.9 Type 2 diabetes mellitus without complications; I10 Essential (primary) hypertension; M62.81 Muscle weakness (generalized); F32.9 Major depressive disorder, single episode, unspecified; R26.81 Unsteadiness on feet; Z79.4 Long term (current) use of insulin; Z88.8 Allergy status to other drugs, medicaments and biological substances; M79.89 Other specified soft tissue disorders
CPT/HCPCS: 36415; 70450; 72125; 80053; 81003; 82962; 83605; 85025; 87040; 99285; J1815; J2405; S5561